=== PATIENT | female | born 1965 | race Caucasian/White ===

== ENCOUNTER → 2016-09-09 | Outpatient (CLI) | payer OTHER ==
[2015-02-23 09:30] VITALS: BP 162/76
[~2016-09-09] MED LIST: ACET-58 PO; ESTROVEN ENER400 MCG PO; IBUP200C PO; MULT-18 PO
--- NOTE | 2016-09-09 19:54 | CARD ---
APPROVED REPORT EXAM: Two-dimensional and M-mode echocardiogram with Doppler and color Doppler. Other Information Quality : GoodHR: 80bpm Rhythm : NSR INDICATION Edema 2D DIMENSIONS RVDd1.9 (2.9-3.5cm)Left Atrium(2D)3.7 (1.6-4.0cm) IVSd1.0 (0.7-1.1cm)Aortic Root(2D)2.9 (2.0-3.7cm) LVDd5.3 (3.9-5.9cm)LVOT Diameter2.4 (1.8-2.4cm) PWd1.0 (0.7-1.1cm)LVDs3.2 (2.5-4.0cm) FS (%) 38.7 %SV92.6 ml LVEF(%)68.6 (>50%) Aortic Valve AoV Peak Madi.130.6cm/sAoV VTI29.1cm AO Peak GR.6.8mmHgLVOT Peak Madi.107.2cm/s AO Mean GR.4mmHgAVA (VMAX)3.59cm2 Mitral Valve MV E Edicyedz04.1cm/sMV E Peak Gr.3mmHg MV DECEL [id number] A Evmhojej70.0cm/s MV E Mean Gr.2mmHgE/A Ratio0.8 MV A [id number] Pulmonary Valve PV Peak Yabifeku88.7cm/s Pulmonary Vein S1 Ejerrolk43.9cm/sD2 Qhluunmw46.3cm/s PVa [id number] LEFT VENTRICLE The left ventricle is normal size. There is normal left ventricular wall thickness. The left ventricu lar systolic function is normal and the ejection fraction is within normal range. The Ejection Fracti on is 65-70%. There is normal LV segmental wall motion. Transmitral Doppler flow pattern is Grade I-a bnormal relaxation pattern. RIGHT VENTRICLE The right ventricle is normal size. There is normal right ventricular wall thickness. The right ventr icular systolic function is normal. ATRIA The left atrium is mildly dilated. The right atrium size is normal. The interatrial septum is intact with no evidence for an atrial septal defect or patent foramen ovale as noted on 2-D or Doppler imagi ng. AORTIC VALVE The aortic valve is mildly thickened. The aortic valve is trileaflet. Doppler and Color Flow revealed no significant aortic regurgitation. There is no significant aortic valvular stenosis. MITRAL VALVE The mitral valve leaflets are thickened. There is no evidence of mitral valve prolapse. There is no m itral valve stenosis. Doppler and Color Flow revealed mild mitral regurgitation. PULMONIC VALVE Doppler and Color Flow revealed mild pulmonic valvular regurgitation. There is no pulmonic valvular s tenosis. GREAT VESSELS The aortic root is normal in size. The ascending aorta is normal in size. The pulmonary artery is nor mal. The IVC is normal in size and collapses >50% with inspiration. PERICARDIAL EFFUSION There is no evidence of significant pericardial effusion. Critical Notification Critical Value: No <Conclusion> The left ventricle is normal size. There is normal left ventricular wall thickness. The left ventricular systolic function is normal and the ejection fraction is within normal range. The Ejection Fraction is 65-70%. Transmitral Doppler flow pattern is Grade I-abnormal relaxation pattern. There is no evidence of significant pericardial effusion. There is no mitral stenosis and a mild mitral regurgitation. The left atrium is of a normal size. There is no aortic stenosis or regurgitation. The right ventricle is of a normal [place] with normal stystolic function. There is no significant tricuspid regurgitation to be able to evaluate the pulmonary artery systolic pressure The inferior vena cava is of a normal size with normal inspiratory collapse. Thus any lower extrmity oedema is not cardiac in etiology Doppler and Color Flow revealed mild pulmonic valvular regurgitation.
== END | disposition home or self-care (01) ==
LOC: ECHO 12:44
PROVIDERS: ATTEND Family Medicine
DX: R60.0 Localized edema (principal); I37.1 Nonrheumatic pulmonary valve insufficiency; I34.0 Nonrheumatic mitral (valve) insufficiency
CPT/HCPCS: 93306

== ENCOUNTER 2018-11-27 20:02 | Emergency (ER) | payer BC, OTHER ==
[~2018-11-27] VITALS: Ht 162.6 cm; Wt 139.7 kg
[2018-11-27 20:05] VITALS: BP 161/85
[2018-11-27] MEDS ORDERED: NEOMY/BACITR/POLYMYXIN OINT PACKET. TP ONE (20:45)
[2018-11-27] MEDS ORDERED: IBUPROFEN 200 MG TABLET. PO ONE (21:00)
--- NOTE | 2018-11-27 21:57 | PHYS DOC ---
Past Medical History Past Medical History: Diabetes-Type II, Hypertension, Other Additional Past Medical Histor: OBESITY,SPINAL STENOSIS Past Surgical History: Tubal ligation, Other Additional Past Surgical Histo: hernia repair, Additional Information: 1 PPD Alcohol Use: Occasionally Drug Use: None Adult General Chief Complaint Chief Complaint: MECHANICAL FALL HPI HPI Patient is a 53 year old female who presents with a right arm contusion, bruising and a skin tear after slipping on her porch and falling on her right side at approximately 7:30 PM. Patient states the pain is constant and 5/10 in severity in her right forearm. In addition, the patient endorses mild right calf and hip pain. However, she denies any bruising or swelling in her lower extremities. Patient denies any head trauma or loss of consciousness during her fall. The patient has not taken anything for the pain yet. She has no other complaints at this time. Review of Systems Review of Systems Constitutional: Denies fever or chills [] Eyes: Denies change in visual acuity, redness, or eye pain [] HENT: Denies nasal congestion or sore throat [] Respiratory: Denies cough or shortness of breath [] Cardiovascular: Denies any chest pain or palpitations. GI: Denies abdominal pain, nausea, vomiting, bloody stools or diarrhea [] : Denies dysuria or hematuria [] Musculoskeletal: Right forearm pain, bruising. Integument: Denies rash or skin lesions [] Neurologic: Denies headache, focal weakness or sensory changes [] Complete systems were reviewed and found to be within normal limits, except as documented in this note. Current Medications Current Medications Current Medications Medications (Trade) Dose Ordered Sig/Dony Start Time Stop Time Status Last Admin Dose Admin Ibuprofen (Motrin) 600 mg 1X ONCE 11/27/18 21:00 11/27/18 21:01 DC 11/27/18 20:59 600 MG Neomycin/ Polymyxin/ Bacitracin (Triple Antibiotic Ointment) 1 pkt 1X ONCE 11/27/18 20:45 11/27/18 20:46 DC 11/27/18 20:59 1 PKT Allergies Allergies Allergies Coded Allergies Type Severity Reaction Last Updated Verified Latex, Natural Rubber Allergy Intermediate Rash 05/29/15 Yes Physical Exam Physical Exam Constitutional: Well developed, well nourished, no acute distress, non-toxic appearance. [] Eyes: conjunctiva normal, no discharge. [] Cardiovascular:Heart rate regular rhythm, no murmur [] Lungs & Thorax: Bilateral breath sounds clear to auscultation [] Skin: Warm, dry, no erythema, no rash. [] Extremities: Bruising, Swelling, skin tear on right forearm. Neurologic: Alert and oriented X 3, normal motor function, normal sensory function, no focal deficits noted. [] Psychologic: Affect normal, judgement normal, mood normal. [] Current Patient Data Vital Signs Vital Signs Date Time Temp Pulse Resp B/P (MAP) Pulse Ox O2 Delivery O2 Flow Rate FiO2 11/27/18 20:05 97.9 102 20 161/85 (110) 96 Room Air 97.9 EKG EKG [] Radiology/Procedures Radiology/Procedures 2 view x rays of both the right forearm and right, lower leg (preliminary reading by ED physician showed no fractures or effusions).[] Course & Med Decision Making Course & Med Decision Making Ms. Jimenez is a 53-year-old female who presents after slipping and falling on her porch earlier this evening and sustaining a right forearm contusion and skin tear. Imaging was obtained and shown to be reassuring for her right radius and ulna as well as her right tibia and fibula. Patient's skin tear was cleaned and bandaged with application of antibiotic ointment. Ibuprofen was administered for pain and inflammation. Patient was also educated on RICE therapy.Patient stable for discharge with outpatient follow-up with PCP. Discussed findings and plan with patient and family, who acknowledge understanding and agreement. Dragon Disclaimer Dragon Disclaimer This electronic medical record was generated, in whole or in part, using a voice recognition dictation system. Departure Departure Impression: Primary Impression: Fall Additional Impressions: Skin tear Contusion of forearm, right Leg sprain Disposition: HOME, SELF-CARE Condition: STABLE Referrals: MONAE GERONIMO (PCP) Patient Instructions: Contusion, [id number], Fall Prevention and Home Safety, Gieb-fa-Umoa, Skin Tear Care, Ghlc-do-Jazi, Sprain, Rody-sr-Joup Additional Instructions: Use over the counter Tylenol and Ibuprofen for pain. ICE area 20 min on then off 20 min for next few days. Problem Qualifiers Primary Impression: Fall Encounter type: initial encounter Qualified Codes: W19.XXXA - Unspecified fall, initial encounter Additional Impressions: Contusion of forearm, right Encounter type: initial encounter Qualified Codes: S50.11XA - Contusion of right forearm, initial encounter CLEO DENNY DO November 27, 2018 21:57
--- NOTE | 2018-11-28 05:40 | RAD ---
Right tibia and fibula AP and lateral views. HISTORY: Pain after a fall AP and lateral views were taken of the right tibia and fibula. There is extensive soft tissue swelling. There is no fracture or acute osseous abnormality. IMPRESSION: 1. Soft tissue swelling right tibia and fibula. 2. No acute fracture. Electronically signed by: Wyatt Leonardo MD (11/28/2018 5:38 AM) [facility]
--- NOTE | 2018-11-28 05:40 | RAD ---
Right forearm 2 views. HISTORY: Pain after a fall 2 views were taken of the right forearm. There is not evidence of an acute fracture or osseous abnormality. IMPRESSION: 1. No fracture or acute osseous abnormality in the right forearm. Electronically signed by: Wyatt Leonardo MD (11/28/2018 5:37 AM) [facility]
== END 2018-11-27 22:08 | disposition home or self-care (01) ==
LOC: ER 20:02
DX: S51.811A Laceration without foreign body of right forearm, initial encounter (principal); S93.691A Other sprain of right foot, initial encounter; M25.551 Pain in right hip; I10 Essential (primary) hypertension; E11.9 Type 2 diabetes mellitus without complications; F17.200 Nicotine dependence, unspecified, uncomplicated; E66.9 Obesity, unspecified; Z68.43 Body mass index [BMI] 50.0-59.9, adult; Z98.51 Tubal ligation status; Z91.040 Latex allergy status; W01.0XXA Fall on same level from slipping, tripping and stumbling without subsequent striking against object, initial encounter; Y93.89 Activity, other specified; Y92.89 Other specified places as the place of occurrence of the external cause; Y99.8 Other external cause status
CPT/HCPCS: 73090; 73590; 99284

== ENCOUNTER 2019-12-30 00:05 | Inpatient (IN) | payer BC, MEDICARE ==
[~2019-12-30] VITALS: Ht 162.6 cm; Wt 147.0 kg
--- NOTE | 2019-12-30 00:54 | PHYS DOC ---
Past Medical History Past Medical History: Diabetes-Type II, Hypertension, Other Additional Past Medical Histor: OBESITY,SPINAL STENOSIS Past Surgical History: Tubal ligation, Other Additional Past Surgical Histo: hernia repair, Smoking Status: Current Every Day Smoker Alcohol Use: Occasionally Drug Use: None General Adult EDM: Chief Complaint: CELLULITIS HPI: HPI: Patient is a 54 year old who presents for evaluation of bilateral lower leg redness and swelling. She has had symptoms progressing over number weeks. There are now small ulcerations developing that are oozing clear fluid. There are blisters present as well. She has been having some increasing shortness of air. However there is no reported fevers and chills. Patient was started on Lasix back in November but her symptoms have only minimally improved. Patient does not have a history of congestive heart failure or renal disease. Dr. Patel is her physician Review of Systems: Review of Systems: Constitutional: Denies fever or chills. [] Eyes: Denies change in visual acuity. [] HENT: Denies nasal congestion or sore throat. [] Respiratory: Denies cough or shortness of breath. [] Cardiovascular: Denies chest pain or edema. [] GI: Denies abdominal pain, nausea, vomiting, bloody stools or diarrhea. [] : Denies dysuria. [] Musculoskeletal: Denies back pain, bilateral lower leg pitting edema with stasis ulcers. [] Integument: Denies rash. [] Neurologic: Denies headache, focal weakness or sensory changes. [] Endocrine: Denies polyuria or polydipsia. [] Lymphatic: Denies swollen glands. [] Psychiatric: Denies depression or anxiety. [] Heart Score: Risk Factors: Risk Factors: DM, Current or recent (<one month) smoker, HTN, HLP, family history of CAD, obesity. Risk Scores: Score 0 - 3: 2.5% MACE over next 6 weeks - Discharge Home Score 4 - 6: 20.3% MACE over next 6 weeks - Admit for Clinical Observation Score 7 - 10: 72.7% MACE over next 6 weeks - Early Invasive Strategies Current Medications: Current Medications Medications (Trade) Dose Ordered Sig/Dony Start Time Stop Time Status Last Admin Dose Admin Clindamycin Phosphate 50 ml @ 100 mls/hr 1X ONCE 12/30/19 01:00 12/30/19 01:29 Sodium Chloride 1,000 ml @ 75 mls/hr 1X ONCE 12/30/19 01:00 12/30/19 14:19 Allergies: Allergies: Allergies Coded Allergies Type Severity Reaction Last Updated Verified Latex, Natural Rubber Allergy Intermediate Rash 05/29/15 Yes Physical Exam: PE: Constitutional: Well developed, well nourished, mild acute distress, non-toxic appearance. [] HENT: Normocephalic, atraumatic, bilateral external ears normal, oropharynx moist, no oral exudates, nose normal. [] Eyes: PERRL, EOMI, conjunctiva normal, no discharge. [] Neck: Normal range of motion, no tenderness, supple, no stridor. [] Cardiovascular:Heart rate regular rhythm, murmur [] Lungs & Thorax: Bilateral breath sounds clear to auscultation [] Abdomen: Bowel sounds normal, soft, no tenderness, no masses, no pulsatile masses. [] Skin: Warm, dry significant erythema with pitting edema bilateral lower legs, some ulcerations present both lower legs, some blisters as well all draining clear fluid. [] Back: No tenderness. [] Extremities: Diffuse lower leg tenderness bilaterally, no cyanosis, no clubbing, ROM intact, pitting edema. [] Neurologic: Alert and oriented X 3, normal motor function, normal sensory function, no focal deficits noted. [] Psychologic: Affect normal, judgement normal, mood normal. [] Current Patient Data: Labs: Laboratory Tests Test 12/30/19 00:40 White Blood Count 10.4 x10^3/uL Red Blood Count 5.62 x10^6/uL Hemoglobin 15.0 g/dL Hematocrit 45.4 % Mean Corpuscular Volume 81 fL Mean Corpuscular Hemoglobin 27 pg Mean Corpuscular Hemoglobin Concent 33 g/dL Red Cell Distribution Width 16.7 % Platelet Count 274 x10^3/uL Neutrophils (%) (Auto) 70 % Lymphocytes (%) (Auto) 20 % Monocytes (%) (Auto) 8 % Eosinophils (%) (Auto) 2 % Basophils (%) (Auto) 1 % Neutrophils # (Auto) 7.2 x10^3/uL Lymphocytes # (Auto) 2.1 x10^3/uL Monocytes # (Auto) 0.8 x10^3/uL Eosinophils # (Auto) 0.2 x10^3/uL Basophils # (Auto) 0.1 x10^3/uL Sodium Level 142 mmol/L Potassium Level 3.6 mmol/L Chloride Level 104 mmol/L Carbon Dioxide Level 27 mmol/L Anion Gap 11 Blood Urea Nitrogen 20 mg/dL Creatinine 1.2 mg/dL Estimated GFR (Cockcroft-Gault) 46.6 BUN/Creatinine Ratio 17 Glucose Level 171 mg/dL Calcium Level 9.0 mg/dL Total Bilirubin 0.2 mg/dL Aspartate Amino Transf (AST/SGOT) 23 U/L Alanine Aminotransferase (ALT/SGPT) 29 U/L Alkaline Phosphatase 89 U/L Creatine Kinase 215 U/L Troponin I Quantitative < 0.017 ng/mL HZ-Olz-V-Type Natriuretic Peptide 153 pg/mL Total Protein 7.4 g/dL Albumin 2.9 g/dL Albumin/Globulin Ratio 0.6 Current Medications Medications (Trade) Dose Ordered Sig/Dony Route PRN Reason Start Time Stop Time Status Last Admin Dose Admin Sodium Chloride 1,000 ml @ 75 mls/hr 1X ONCE IV 12/30/19 01:00 12/30/19 14:19 12/30/19 01:02 Clindamycin Phosphate 50 ml @ 100 mls/hr 1X ONCE IV 12/30/19 01:00 12/30/19 01:29 DC 12/30/19 01:01 EKG: EKG: EKG read at 12:54 AM shows normal sinus rhythm, rate 81, leftward axis, unremarkable EKG, not STEMI [] Radiology/Procedures: Radiology/Procedures: CXR: CM, no acute findings[] Course & Med Decision Making: Course & Med Decision Making Pertinent Labs and Imaging studies reviewed. (See chart for details) [] Dragon Disclaimer: Dragon Disclaimer: This electronic medical record was generated, in whole or in part, using a voice recognition dictation system. 0300 stable, patient will be admitted and treated for cellulitis. Dose of clindamycin given after blood cultures collected. Patient was started on Lasix as well. Patient will admitted to the hospitalist service. Departure Departure Impression: Primary Impression: Bilateral lower leg cellulitis Additional Impressions: Leg ulcer, left Qualified Codes: L97.921 - Non-pressure chronic ulcer of unspecified part of left lower leg limited to breakdown of skin Peripheral edema Disposition: ADMITTED INPATIENT Admitting Physician: ED Condition: STABLE Referrals: PULS,JAQUELINE L MD (PCP) Justicifation of Admission Dx: Justifications for Admission: Justification of Admission Dx: Yes Cellulitis: Cellulitis HARMAN WOODARD DO Dec 30, 2019 00:54
[2019-12-30] MEDS ORDERED: IV NORMAL SALINE 1000ML BAG 1,000 ML IV ONE (01:00)
[2019-12-30] MEDS ORDERED: CLINDAMYCIN 600MG PREMIX 50 ML IV ONE (01:00)
[2019-12-30 01:03] LABS: BASO # 0.1 x10^3/uL (0.0-0.2); BASO % 1 % (0-3); EOS # 0.2 x10^3/uL (0.0-0.7); EOS % 2 % (0-3); HEMATOCRIT 45.4 % (36.0-47.0); LYMPH # 2.1 x10^3/uL (1.0-4.8); LYMPH % 20 % (24-48); MEAN CORPUSCULAR HEMOGLOBIN 27 pg (25-35); MEAN CORPUSCULAR HGB CONC 33 g/dL (31-37); MEAN CORPUSCULAR VOLUME 81 fL (79-100); MONO # 0.8 x10^3/uL (0.0-1.1); MONO % 8 % (0-9); NEUT # 7.2 x10^3/uL (1.8-7.7); NEUT % 70 % (31-73); PLATELET COUNT 274 x10^3/uL (140-400); RED BLOOD COUNT 5.62 x10^6/uL (3.50-5.40); RED CELL DISTRIBUTION WIDTH 16.7 % (11.5-14.5); WHITE BLOOD COUNT 10.4 x10^3/uL (4.0-11.0)
[2019-12-30 01:25] LABS: CREATININE 1.2 mg/dL (0.6-1.0); GFR 46.6; POTASSIUM 3.6 mmol/L (3.5-5.1)
[2019-12-30 01:32] LABS: ALBUMIN 2.9 g/dL (3.4-5.0); ALBUMIN/GLOBULIN RATIO 0.6 (1.0-1.7); TOTAL BILIRUBIN 0.2 mg/dL (0.2-1.0); TOTAL PROTEIN 7.4 g/dL (6.4-8.2)
[2019-12-30] MEDS ORDERED: ONDANSETRON PF 4 MG/2 ML VIAL. IV PRN ×2 (03:30→14:00)
[2019-12-30] MEDS ORDERED: FUROSEMIDE 40 MG TABLET. PO ONE (04:00)
[2019-12-30 04:30] VITALS: BP 114/61
[2019-12-30] MEDS ORDERED: FURO-68 PO (05:12)
[2019-12-30] MEDS ORDERED: VALS80TA3 PO (05:12)
[2019-12-30] MEDS ORDERED: POTA20TA4 PO (05:12)
--- NOTE | 2019-12-30 05:20 | RAD ---
EXAM: CHEST ONE VIEW. HISTORY: Shortness of breath. COMPARISON: None. FINDINGS: A frontal view of the chest is obtained. There is a mild airspace opacity in the right base. There is no pneumothorax or pleural effusion. The heart is not enlarged. IMPRESSION: 1. Mild right basilar infiltrate. Correlate for atypical pneumonia. Electronically signed by: Delisa Greco MD (12/30/2019 5:17 AM) [facility]
[2019-12-30 07:00] VITALS: BP 103/50
--- NOTE | 2019-12-30 07:51 | EKG ---
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
--- NOTE | 2019-12-30 10:11 | PDOC1 ---
History and Physical Date of Admission Date of Admission DATE: 12/30/19 TIME: 10:10 Identification/Chief Complaint Chief Complaint SEEN IN ER WITH CELLULITIS BOTH LOWER LEGS 54 year old who presents for evaluation of bilateral lower leg redness and swelling. She has had symptoms progressing over number weeks. There are now small ulcerations developing that are oozing clear fluid. There are blisters present as well. She has been having some increasing shortness of air. However there is no reported fevers and chills. Patient was started on Lasix in November but her symptoms have only minimally improved, Denies trauma to legs Past Medical History Past Medical History Past Medical History Past Medical History Past Medical History: Diabetes-Type II, Hypertension, Other Additional Past Medical Histor: OBESITY,SPINAL STENOSIS Past Surgical History: Tubal ligation, Other Additional Past Surgical Histo: hernia repair, Smoking Status: Current Every Day Smoker Alcohol Use: Occasionally Drug Use: None fhx obesity Endocrine: Diabetes Family History Family History: High Cholestrol, Hypertension Social History Smoke: <1 pack per day ALCOHOL: none Drugs: None Current Problem List Problem List Problems Medical Problems: (1) Bilateral lower leg cellulitis Status: Acute (2) Leg ulcer, left Status: Acute (3) Peripheral edema Status: Acute Current Medications Current Medications Current Medications Sodium Chloride 1,000 ml @ 75 mls/hr 1X ONCE IV Last administered on 12/30/19at 01:02; Start 12/30/19 at 01:00; Stop 12/30/19 at 14:19 Clindamycin Phosphate 50 ml @ 100 mls/hr 1X ONCE IV Last administered on 12/30/19at 01:01; Start 12/30/19 at 01:00; Stop 12/30/19 at 01:29; Status DC Furosemide (Lasix) 40 mg 1X ONCE PO Last administered on 12/30/19at 04:10; Start 12/30/19 at 04:00; Stop 12/30/19 at 04:01; Status DC Ondansetron HCl (Zofran) 4 mg PRN Q8HRS PRN IV NAUSEA/VOMITING 1ST CHOICE; Start 12/30/19 at 03:30; Stop 12/31/19 at 03:29 Active Scripts Active Reported Diovan (Valsartan) 80 Mg Tablet 80 Mg PO DAILY Klor-Con M20 (Potassium Chloride) 20 Meq Tab.er.prt 1 Tab PO DAILY 30 Days Lasix (Furosemide) 40 Mg Tablet 1 Tab PO DAILY 30 Days Daily Vitamin (Multivitamin) 1 Each Tablet 1 Each PO DAILY [employer] Capsule (Mv,Ca,Min/Fa/Herbal No.158) 400 Mcg Capsule 400 Mcg PO DAILY Acetaminophen Extra Strength (Acetaminophen) 500 Mg Tablet 500 Mg PO PRN Ibuprofen 200 Mg Capsule 200 Mg PO PRN Allergies Allergies: Coded Allergies: Latex, Natural Rubber (Verified Allergy, Intermediate, Rash, 05/29/15) ROS Review of System Review of Systems: Review of Systems: Constitutional: Denies fever or chills. [] Eyes: Denies change in visual acuity. [] HENT: Denies nasal congestion or sore throat. [] Respiratory: Denies cough or shortness of breath. [] Cardiovascular: Denies chest pain or edema. [] GI: Denies abdominal pain, nausea, vomiting, bloody stools or diarrhea. [] : Denies dysuria. [] Musculoskeletal: Denies back pain, bilateral lower leg pitting edema with stasis ulcers. [] Integument: bilateral lower leg rash. [] Neurologic: Denies headache, focal weakness or sensory changes. [] Endocrine: Denies polyuria or polydipsia. [] Lymphatic: Denies swollen glands. [] Psychiatric: Denies depression or anxiety. [] 14 pt ros otherwise neg Respiratory: No: Cough, Hemoptysis, Orthopnea, Pleuritic Pain, Shortness of breath, SOB with excertion, Sputum Changes, Stridor, Tachypnea, Wheezing, Other Cardiovascular: yes Edema; No Chest Pain, No Palpitations, No Orthopnea, No Paroxysmal Noc. Dyspnea, No Lt Headedness, No Other Gastrointestinal: No Nausea, No Vomiting, No Abdominal Pain, No Diarrhea, No Constipation, No Melena, No Hematochezia, No Other Musculoskeletal: Yes Gait Disturbance, Yes Joint Stiffness, Yes Joint Swelling Neurological: Yes Gait Disturbance Physical Exam Physical Exam Constitutional: Well developed, well nourished, mild acute distress, non-toxic appearance. [] HENT: Normocephalic, atraumatic, bilateral external ears normal, oropharynx moist, no oral exudates, nose normal. [] Eyes: PERRL, EOMI, conjunctiva normal, no discharge. [] Neck: Normal range of motion, no tenderness, supple, no stridor. [] Cardiovascular:Heart rate regular rhythm, murmur [] Lungs & Thorax: Bilateral breath sounds clear to auscultation [] Abdomen: Bowel sounds normal, soft, no tenderness, no masses, no pulsatile masses. [] Skin: Warm, dry significant erythema with pitting edema bilateral lower legs, some ulcerations present both lower legs, some blisters as well all draining clear fluid. [] Back: No tenderness. [] Extremities: Diffuse lower leg tenderness bilaterally, no cyanosis, no clubbing, ROM intact, pitting edema. [] stasis dermatitis noted Neurologic: Alert and oriented X 3, normal motor function, normal sensory function, no focal deficits noted. [] Psychologic: Affect normal, judgment normal, mood normal. [] General: Alert, Oriented X3, Cooperative, mild distress HEENT: Atraumatic, EOMI, Mucous membr. moist/pink Lungs: Clear to auscultation, Normal air movement Heart: RRR, no thrills Breasts: Not examined Abdomen: Normal bowel sounds, Soft Rectal Exam: not examined PELVIC: Examination not indicated Extremities: No cyanosis Neuro: Normal speech, Cranial nerves 3-12 NL Psych/Mental Status: Mental status NL, Mood NL Vitals Vitals Vital Signs Date Time Temp Pulse Resp B/P (MAP) Pulse Ox O2 Delivery O2 Flow Rate FiO2 12/30/19 04:30 98.3 82 16 114/61 (78) 96 Room Air 98.3 Labs Labs Laboratory Tests Test 12/30/19 00:40 White Blood Count 10.4 x10^3/uL (4.0-11.0) Red Blood Count 5.62 x10^6/uL (3.50-5.40) Hemoglobin 15.0 g/dL (12.0-15.5) Hematocrit 45.4 % (36.0-47.0) Mean Corpuscular Volume 81 fL (79-100) Mean Corpuscular Hemoglobin 27 pg (25-35) Mean Corpuscular Hemoglobin Concent 33 g/dL (31-37) Red Cell Distribution Width 16.7 % (11.5-14.5) Platelet Count 274 x10^3/uL (140-400) Neutrophils (%) (Auto) 70 % (31-73) Lymphocytes (%) (Auto) 20 % (24-48) Monocytes (%) (Auto) 8 % (0-9) Eosinophils (%) (Auto) 2 % (0-3) Basophils (%) (Auto) 1 % (0-3) Neutrophils # (Auto) 7.2 x10^3/uL (1.8-7.7) Lymphocytes # (Auto) 2.1 x10^3/uL (1.0-4.8) Monocytes # (Auto) 0.8 x10^3/uL (0.0-1.1) Eosinophils # (Auto) 0.2 x10^3/uL (0.0-0.7) Basophils # (Auto) 0.1 x10^3/uL (0.0-0.2) Sodium Level 142 mmol/L (136-145) Potassium Level 3.6 mmol/L (3.5-5.1) Chloride Level 104 mmol/L (98-107) Carbon Dioxide Level 27 mmol/L (21-32) Anion Gap 11 (6-14) Blood Urea Nitrogen 20 mg/dL (7-20) Creatinine 1.2 mg/dL (0.6-1.0) Estimated GFR (Cockcroft-Gault) 46.6 BUN/Creatinine Ratio 17 (6-20) Glucose Level 171 mg/dL (70-99) Calcium Level 9.0 mg/dL (8.5-10.1) Total Bilirubin 0.2 mg/dL (0.2-1.0) Aspartate Amino Transf (AST/SGOT) 23 U/L (15-37) Alanine Aminotransferase (ALT/SGPT) 29 U/L (14-59) Alkaline Phosphatase 89 U/L (46-116) Creatine Kinase 215 U/L (26-192) Troponin I Quantitative < 0.017 ng/mL (0.000-0.055) KY-Xzk-M-Type Natriuretic Peptide 153 pg/mL (0-124) Total Protein 7.4 g/dL (6.4-8.2) Albumin 2.9 g/dL (3.4-5.0) Albumin/Globulin Ratio 0.6 (1.0-1.7) Laboratory Tests Test 12/30/19 00:40 White Blood Count 10.4 x10^3/uL (4.0-11.0) Red Blood Count 5.62 x10^6/uL (3.50-5.40) Hemoglobin 15.0 g/dL (12.0-15.5) Hematocrit 45.4 % (36.0-47.0) Mean Corpuscular Volume 81 fL (79-100) Mean Corpuscular Hemoglobin 27 pg (25-35) Mean Corpuscular Hemoglobin Concent 33 g/dL (31-37) Red Cell Distribution Width 16.7 % (11.5-14.5) Platelet Count 274 x10^3/uL (140-400) Neutrophils (%) (Auto) 70 % (31-73) Lymphocytes (%) (Auto) 20 % (24-48) Monocytes (%) (Auto) 8 % (0-9) Eosinophils (%) (Auto) 2 % (0-3) Basophils (%) (Auto) 1 % (0-3) Neutrophils # (Auto) 7.2 x10^3/uL (1.8-7.7) Lymphocytes # (Auto) 2.1 x10^3/uL (1.0-4.8) Monocytes # (Auto) 0.8 x10^3/uL (0.0-1.1) Eosinophils # (Auto) 0.2 x10^3/uL (0.0-0.7) Basophils # (Auto) 0.1 x10^3/uL (0.0-0.2) Sodium Level 142 mmol/L (136-145) Potassium Level 3.6 mmol/L (3.5-5.1) Chloride Level 104 mmol/L (98-107) Carbon Dioxide Level 27 mmol/L (21-32) Anion Gap 11 (6-14) Blood Urea Nitrogen 20 mg/dL (7-20) Creatinine 1.2 mg/dL (0.6-1.0) Estimated GFR (Cockcroft-Gault) 46.6 BUN/Creatinine Ratio 17 (6-20) Glucose Level 171 mg/dL (70-99) Calcium Level 9.0 mg/dL (8.5-10.1) Total Bilirubin 0.2 mg/dL (0.2-1.0) Aspartate Amino Transf (AST/SGOT) 23 U/L (15-37) Alanine Aminotransferase (ALT/SGPT) 29 U/L (14-59) Alkaline Phosphatase 89 U/L (46-116) Creatine Kinase 215 U/L (26-192) Troponin I Quantitative < 0.017 ng/mL (0.000-0.055) OR-Bua-Z-Type Natriuretic Peptide 153 pg/mL (0-124) Total Protein 7.4 g/dL (6.4-8.2) Albumin 2.9 g/dL (3.4-5.0) Albumin/Globulin Ratio 0.6 (1.0-1.7) Images Images EXAM: CHEST ONE VIEW. HISTORY: Shortness of breath. COMPARISON: None. FINDINGS: A frontal view of the chest is obtained. There is a mild airspace opacity in the right base. There is no pneumothorax or pleural effusion. The heart is not enlarged. IMPRESSION: 1. Mild right basilar infiltrate. Correlate for atypical pneumonia. Electronically signed by: Delisa Greco MD (12/30/2019 5:17 AM) [facility] DICTATED and SIGNED BY: JUNAID GRECO MD DATE: 12/30/19 0517 LEFT VENTRICLE The left ventricle is normal size. There is normal left ventricular wall thickness. The left ventricular systolic function is normal and the ejection fraction is within normal range. The Ejection Fraction is 65-70%. There is normal LV segmental wall motion. Transmitral Doppler flow pattern is Grade I- abnormal relaxation pattern. RIGHT VENTRICLE The right ventricle is normal size. There is normal right ventricular wall thickness. The right ventricular systolic function is normal. ATRIA The left atrium is mildly dilated. The right atrium size is normal. The interatrial septum is intact with no evidence for an atrial septal defect or patent foramen ovale as noted on 2-D or Doppler imaging. AORTIC VALVE The aortic valve is mildly thickened. The aortic valve is trileaflet. Doppler and Color Flow revealed no significant aortic regurgitation. There is no significant aortic valvular stenosis. MITRAL VALVE The mitral valve leaflets are thickened. There is no evidence of mitral valve prolapse. There is no mitral valve stenosis. Doppler and Color Flow revealed mild mitral regurgitation. PULMONIC VALVE Doppler and Color Flow revealed mild pulmonic valvular regurgitation. There is no pulmonic valvular stenosis. GREAT VESSELS The aortic root is normal in size. The ascending aorta is normal in size. The pulmonary artery is normal. The IVC is normal in size and collapses >50% with inspiration. PERICARDIAL EFFUSION There is no evidence of significant pericardial effusion. Critical Notification Critical Value: No <Conclusion> The left ventricle is normal size. There is normal left ventricular wall thickness. The left ventricular systolic function is normal and the ejection fraction is within normal range. The Ejection Fraction is 65-70%. Transmitral Doppler flow pattern is Grade I-abnormal relaxation pattern. There is no evidence of significant pericardial effusion. There is no mitral stenosis and a mild mitral regurgitation. The left atrium is of a normal size. There is no aortic stenosis or regurgitation. The right ventricle is of a normal [place] with normal stystolic function. There is no significant tricuspid regurgitation to be able to evaluate the pulmonary artery systolic pressure The inferior vena cava is of a normal size with normal inspiratory collapse. Thus any lower extrmity oedema is not cardiac in etiology Doppler and Color Flow revealed mild pulmonic valvular regurgitation. DICTATED and SIGNED BY: PUNEET TABOR MD DATE: 09/09/161952 CC: VALERY OTT MD; MONAE GERONIMO; PUNEET TABOR MD ~ VTE Prophylaxis Ordered VTE Prophylaxis Devices: Contraindicated VTE Pharmacological Prophylaxi: Yes Assessment/Plan Assessment/Plan impression Bilateral lower ext cellulitis LEFT LOWER LEG ULCER Mild right basilar infiltrate. Correlate for atypical pneumonia. morbid obesity DIABETES HYPERTENSION TOBACCO ABUSE DISORDER plan ADMIT consult ID Zosyn/Zyvox/Diflucan iv LOWER arterial dopplers DVT PROPHYLAXIS HOME MEDS WOUND CARE NURSE CONSULT Smoking cessation education discussed D/W RN Justicifation of Admission Dx: Justifications for Admission: Justification of Admission Dx: Yes Sepsis: Infection Cellulitis: Cellulitis Comments: cellulitis , in a diabetic RODRIGUE CHURCHILL MD Dec 30, 2019 10:11
--- NOTE | 2019-12-30 10:43 | NUR ---
SS following for discharge planning. SS reviewed pt chart and discussed with pt RN. Pt is from home with spouse and is currently on room air. SS will continue to follow for discharge planning.
[2019-12-30 11:00] VITALS: BP 125/58
[2019-12-30] MEDS ORDERED: ACETAMINOPHEN 500 MG TABLET PO PRN (11:00)
[2019-12-30] MEDS: LOSARTAN POTASSIUM 50 MG TABLET. PO SCH (12:04)
[2019-12-30] MEDS: POTASSIUM CHLORIDE 20 MEQ TABLET.ER. PO SCH (12:04)
[2019-12-30] MEDS: MULTIVITAMIN with MINERAL TABLET. PO SCH (12:04)
[2019-12-30] MEDS: FUROSEMIDE 40 MG TABLET. PO SCH (12:05)
--- NOTE | 2019-12-30 13:04 | PDOC ---
Infectious Disease Note Vital Sign Vital Signs Vital Signs Date Time Temp Pulse Resp B/P (MAP) Pulse Ox O2 Delivery O2 Flow Rate FiO2 12/30/19 12:04 78 125/58 12/30/19 11:00 97.6 16 93 Room Air 2.0 97.6 Labs Lab Laboratory Tests Test 12/30/19 00:40 White Blood Count 10.4 x10^3/uL (4.0-11.0) Red Blood Count 5.62 x10^6/uL (3.50-5.40) Hemoglobin 15.0 g/dL (12.0-15.5) Hematocrit 45.4 % (36.0-47.0) Mean Corpuscular Volume 81 fL (79-100) Mean Corpuscular Hemoglobin 27 pg (25-35) Mean Corpuscular Hemoglobin Concent 33 g/dL (31-37) Red Cell Distribution Width 16.7 % (11.5-14.5) Platelet Count 274 x10^3/uL (140-400) Neutrophils (%) (Auto) 70 % (31-73) Lymphocytes (%) (Auto) 20 % (24-48) Monocytes (%) (Auto) 8 % (0-9) Eosinophils (%) (Auto) 2 % (0-3) Basophils (%) (Auto) 1 % (0-3) Neutrophils # (Auto) 7.2 x10^3/uL (1.8-7.7) Lymphocytes # (Auto) 2.1 x10^3/uL (1.0-4.8) Monocytes # (Auto) 0.8 x10^3/uL (0.0-1.1) Eosinophils # (Auto) 0.2 x10^3/uL (0.0-0.7) Basophils # (Auto) 0.1 x10^3/uL (0.0-0.2) Sodium Level 142 mmol/L (136-145) Potassium Level 3.6 mmol/L (3.5-5.1) Chloride Level 104 mmol/L (98-107) Carbon Dioxide Level 27 mmol/L (21-32) Anion Gap 11 (6-14) Blood Urea Nitrogen 20 mg/dL (7-20) Creatinine 1.2 mg/dL (0.6-1.0) Estimated GFR (Cockcroft-Gault) 46.6 BUN/Creatinine Ratio 17 (6-20) Glucose Level 171 mg/dL (70-99) Calcium Level 9.0 mg/dL (8.5-10.1) Total Bilirubin 0.2 mg/dL (0.2-1.0) Aspartate Amino Transf (AST/SGOT) 23 U/L (15-37) Alanine Aminotransferase (ALT/SGPT) 29 U/L (14-59) Alkaline Phosphatase 89 U/L (46-116) Creatine Kinase 215 U/L (26-192) Troponin I Quantitative < 0.017 ng/mL (0.000-0.055) LF-Oxo-O-Type Natriuretic Peptide 153 pg/mL (0-124) Total Protein 7.4 g/dL (6.4-8.2) Albumin 2.9 g/dL (3.4-5.0) Albumin/Globulin Ratio 0.6 (1.0-1.7) Objective Assessment Bilat Lower ext cellulitis ROSELIA Morbid Obesity Tinea ? GABRIEL Plan Plan of Care Zosyn/Zyvox/Diflucan LOWER arterial dopplers F/u labs and cults Thank you # [phone] PHOENIX MERCADO MD Dec 30, 2019 13:04
[2019-12-30] MEDS: FLUCONAZOLE 100 MG TABLET. PO SCH (13:23)
[2019-12-30] MEDS: LINEZOLID 600 MG TABLET PO SCH ×2 (13:23→20:23)
[2019-12-30] MEDS ORDERED: MAG HYDROX/ALUMINUM HYD/SIMETH 30 ML ORAL.SUSP PO PRN (14:00)
[2019-12-30] MEDS ORDERED: guaiFENesin ORAL 200 MG/10 ML LIQUID. PO PRN (14:00)
[2019-12-30] MEDS ORDERED: DOCUSATE SODIUM 100 MG CAPSULE. PO PRN (14:00)
[2019-12-30] MEDS ORDERED: ENOXAPARIN 40 MG/0.4 ML SYRINGE. SQ SCH (14:00)
[2019-12-30] MEDS ORDERED: 0.9 % SODIUM CHLORIDE 10 ML DISP.SYRIN. IV PRN (14:00)
[2019-12-30] MEDS ORDERED: cloNIDine HCL 0.1 MG TABLET PO PRN (14:00)
[2019-12-30 15:00] VITALS: BP 134/63
[2019-12-30] MEDS: IPRATRPIUM/ALBUTEROL 0.5/2.5MG 3 ML NEBU. NEB SCH ×3 (15:03→19:42)
--- NOTE | 2019-12-30 15:48 | NUR ---
Wound Care Wound Type/Assessment: LLE blister, slough, red granulation with reddened shawna-wound. Treatment Recommendations/Plan: Cleansed wound, applied medihoney alginate,foam and Medigrip size G. Education provided: Pt educated on PU prevention and wound care plan of care Offloading surface/device: none Recommended Referrals/Tests: none Discharge Recommendations for dressings: as above listed
--- NOTE | 2019-12-30 16:07 | RAD ---
DUPLEX LOWER EXTREMITY BILAT Indication: Reason: Bilateral Leg Pain; ? PAD / Spl. Instructions: / History: Comparison: None. Procedure: Real-time grayscale, color flow Doppler, and Doppler spectral waveform analysis of the arterial system of the lower extremity is performed. Findings: Right lower extremity: Monophasic waveforms throughout the right lower extremity. Elevated velocity within the right common femoral artery measures 207 cm/s. Elevated velocity within the right superficial femoral artery max approximately 216 cm/s. Borderline elevated velocity within the right anterior tibial artery 159 cm/s. Left lower extremity: Monophasic waveforms throughout the left lower extremity. Elevated velocity within the left common femoral artery measures 193 cm/s. Elevated velocity within the left deep femoral artery measures 169 cm/s. Elevated velocity within the left superficial femoral artery max velocity approximately 256 cm/s. Elevated velocity within the posterior tibial artery measures 164 cm/s. Bilateral peroneal arteries not identified. Bilateral lower extremity subcutaneous edema. IMPRESSION: 1. Monophasic waveforms throughout the bilateral lower extremities, may indicate proximal stenosis. 2. Elevated velocities within the right common femoral and bilateral superficial femoral arteries, may indicate 50-75 percent stenosis. 3. Elevated velocities within the left common femoral, left deep femoral, left posterior tibial and right anterior tibial arteries, may indicate 30-49 percent stenosis. 4. Bilateral peroneal arteries not well seen, may relate to technique, stenosis or occlusion. Electronically signed by: Candelario Carrera DO (12/30/2019 4:04 PM) [facility]
[2019-12-30] MEDS: PIPERACILLIN/TAZOBACTAM 3.375 GM in IV NORMAL SALINE 50ML 50 ML IV SCH ×2 (17:17→23:36)
[2019-12-30 19:10] VITALS: BP 95/55
[2019-12-30 23:26] VITALS: BP 123/73
--- NOTE | 2019-12-31 00:07 | CONS ---
DATE OF CONSULTATION: 12/30/2019 LOCATION: The patient's room is #246. REQUESTING PHYSICIAN: Dr. Becerra. REASON FOR CONSULTATION: Cellulitis. HISTORY OF PRESENT ILLNESS: The patient is a pleasant 54-year-old female with a history of hypertension, morbid obesity and tobacco abuse, who states for the last year or so she has had problems with increased swelling of her lower extremities. She followed up with her primary care doctor and in November she began to take Lasix to try to improve the swelling. She states the swelling improved; however, she developed a sore, particularly in the left base of her lower leg and then developed a little bit more sores on her right lower extremity. The wounds began to sting. They had clear fluid and she did put some ointment on the right lower extremity, but because of the tenderness, then developed some redness and some warmth as well as some swelling. She was admitted to the hospital. She has not been having any fever, chills or sweats. Appetite is okay. Energy is alright. She has been put on a little bit of oxygen because she desats at night and she received a dose of clindamycin. She denies any trauma. She wears slippers around the house. Does have some dogs, but no interaction with the skin. PAST MEDICAL HISTORY: Positive for obesity, hypertension, and spinal stenosis. PAST SURGICAL HISTORY: Positive for tubal ligations and umbilical hernia repair x 2. REVIEW OF SYSTEMS: Otherwise negative. ALLERGIES: No known drug allergies. SOCIAL HISTORY: She is a smoker. Denies any alcohol. Again, has two dogs. She is not working. No outdoor activity and she is . FAMILY HISTORY: Noncontributory. CURRENT MEDICATIONS: She received clindamycin x 1, Lasix, Cozaar, multivitamins, and Zofran. PHYSICAL EXAMINATION: VITAL SIGNS: Afebrile, temperature 97.6, pulse 78, respirations 16, blood pressure 125/58, and satting 93% on 2 liters. CONSTITUTIONAL: She is sitting upright in bed. She is cooperative. She is in no acute distress. Wears glasses. HEENT: Pupils are equal and reactive. She has normal conjunctivae. Oral cavity, pharynx is clear. NECK: Supple with good range of motion. LUNGS: Clear to auscultation bilaterally. HEART: S1, S2 distant. ABDOMEN: Morbidly obese, soft, nontender. No guarding, no rebound. EXTREMITIES: No clubbing or cyanosis. She has 1-2+ bilateral lower extremity edema. There is some wrinkling. She also has some yeast. Her legs are warm to touch. She has decreased pulses. She has a superficial wound on the medial aspect just above her Achilles on the left side. She has some small wound on her right lower extremity. SKIN: Otherwise, warm and without rash. NEUROLOGIC: She is nonfocal and appropriate. PSYCHIATRIC: Affect is appropriate. LABORATORY DATA: Her creatinine was 1.2 today. Glucose 171. She had normal liver function study tests. Creatine kinase was elevated at 215. White count 10.4, hemoglobin 15, platelets 274, neutrophils 70, and lymphs are 20. Chest x-ray: Mild basilar infiltrate. IMPRESSION: 1. Bilateral lower extremity cellulitis. 2. Acute kidney injury. 3. Morbid obesity. 4. Tinea. 5. Obstructive sleep apnea. RECOMMENDATIONS: We will start Zosyn, Zyvox and Diflucan, obtain lower extremity Dopplers and follow up on labs and cultures. Thank you for allowing me to see and participate in this patient's care. Should you have further questions, please do not hesitate to contact me. PHOENIX MERCADO MD DR: ADAN/bethany JOB#: [id number] / [id number]
[2019-12-31 03:50] VITALS: BP 127/80
[2019-12-31] MEDS: PIPERACILLIN/TAZOBACTAM 3.375 GM in IV NORMAL SALINE 50ML 50 ML IV SCH ×3 (04:59→17:58)
[2019-12-31 05:32] LABS: ALBUMIN 2.6 g/dL (3.4-5.0); CALCIUM 8.1 mg/dL (8.5-10.1); CREATININE 1.1 mg/dL (0.6-1.0); GFR 51.6; PHOSPHORUS 3.4 mg/dL (2.6-4.7); POTASSIUM 3.9 mmol/L (3.5-5.1)
[2019-12-31] MEDS: IPRATRPIUM/ALBUTEROL 0.5/2.5MG 3 ML NEBU. NEB SCH ×4 (07:11→21:53)
[2019-12-31 08:11] VITALS: BP 141/56
[2019-12-31] MEDS: FUROSEMIDE 40 MG TABLET. PO SCH (08:31)
[2019-12-31] MEDS: LINEZOLID 600 MG TABLET PO SCH ×2 (08:31→21:34)
[2019-12-31] MEDS: FLUCONAZOLE 100 MG TABLET. PO SCH (08:31)
[2019-12-31] MEDS: MULTIVITAMIN with MINERAL TABLET. PO SCH (08:31)
[2019-12-31] MEDS: POTASSIUM CHLORIDE 20 MEQ TABLET.ER. PO SCH (08:31)
[2019-12-31] MEDS: LOSARTAN POTASSIUM 50 MG TABLET. PO SCH (08:32)
[2019-12-31] MEDS ORDERED: [UNRECOGNIZED DRUG - REMARK] PO SCH (09:00)
--- NOTE | 2019-12-31 10:32 | PDOC ---
Infectious Disease Note Subjective Subjective Legs still swollen and having stinging type pain lower extremities Denies F/C/aches/N/V/D/SOA ROS ROS as mentioned above Vital Sign Vital Signs Vital Signs Date Time Temp Pulse Resp B/P (MAP) Pulse Ox O2 Delivery O2 Flow Rate FiO2 12/31/19 08:32 73 141/56 12/31/19 08:11 98.0 20 92 Room Air 98.0 12/31/19 03:50 2.0 Physical Exam PHYSICAL EXAM GENERAL: Propped up in bed, alert in NAD LUNGS: Clear to auscultation bilaterally. 1.5L O2 HEART: S1, S2 distant. ABDOMEN: Morbidly obese, soft, nontender. No guarding, no rebound. EXTREMITIES: No clubbing or cyanosis. 2+ bilateral lower extremity edema and yeast. Legs are warm to touch, mild redness. Superficial wound on the medial aspect just above her Achilles on the left side & small wound on her right lower extremity, bandages not taken down SKIN: Otherwise, warm and without rash. NEUROLOGIC: Nonfocal and appropriate. PIV Labs Lab Laboratory Tests Test 12/31/19 04:30 Sodium Level 140 mmol/L (136-145) Potassium Level 3.9 mmol/L (3.5-5.1) Chloride Level 105 mmol/L (98-107) Carbon Dioxide Level 29 mmol/L (21-32) Anion Gap 6 (6-14) Blood Urea Nitrogen 16 mg/dL (7-20) Creatinine 1.1 mg/dL (0.6-1.0) Estimated GFR (Cockcroft-Gault) 51.6 Glucose Level 109 mg/dL (70-99) Calcium Level 8.1 mg/dL (8.5-10.1) Phosphorus Level 3.4 mg/dL (2.6-4.7) Albumin 2.6 g/dL (3.4-5.0) IMPRESSION: 1. Monophasic waveforms throughout the bilateral lower extremities, may indicate proximal stenosis. 2. Elevated velocities within the right common femoral and bilateral superficial femoral arteries, may indicate 50-75 percent stenosis. 3. Elevated velocities within the left common femoral, left deep femoral, left posterior tibial and right anterior tibial arteries, may indicate 30-49 percent stenosis. 4. Bilateral peroneal arteries not well seen, may relate to technique, stenosis or occlusion. Micro Microbiology 12/30/19 Blood Culture - Preliminary, Resulted NO GROWTH AFTER 1 DAY Objective Assessment Bilateral lower extremity cellulitis. Right basilar infiltrate. Acute kidney injury. Morbid obesity. Tinea. Obstructive sleep apnea. Plan Plan of Care Zosyn/Zyvox/Diflucan F/u labs and cults Leg elevation D/w daughter at bedside Attending Co-Sign The patient was seen and interviewed as well as examined at the bedside. The chart was reviewed. The case was discussed. Agree with the plan of care. BURKE CARR APRN Dec 31, 2019 10:32 MIGUEL ÁNGEL JOSE MD Dec 31, 2019 12:09
[2019-12-31 10:39] VITALS: BP 125/43
--- NOTE | 2019-12-31 12:30 | PDOC ---
[facility] PROGRESS NOTE Chief Complaint Chief Complaint Bilateral lower ext cellulitis Left leg ulcer Peripheral vascular disease noted on ultrasound of lower extremities Right pneumonia Overweight Diabetes hypertension and tobacco abuse History of Present Illness History of Present Illness 12/31/2019 Patient seen and examined Reviewed chart Discussed with RN I consulted vascular surgery Vitals/I&O Vitals/I&O: Vital Signs Date Time Temp Pulse Resp B/P (MAP) Pulse Ox O2 Delivery O2 Flow Rate FiO2 12/31/19 11:22 94 Room Air 12/31/19 10:39 98.0 64 20 125/43 (70) 1.5 98.0 I & O 12/30/19 12/30/19 12/31/19 15:00 23:00 07:00 Intake Total 180 ml 1622 ml 225 ml Output Total 1300 ml 1400 ml Balance 180 ml 322 ml -1175 ml Physical Exam Physical Exam: GENERAL: Propped up in bed, alert in NAD LUNGS: Clear to auscultation bilaterally. 1.5L O2 HEART: S1, S2 distant. ABDOMEN: Soft, nontender. No guarding, no rebound. EXTREMITIES: No clubbing or cyanosis. 2+ bilateral lower extremity both legs with clean dry intact compression stocking edema and yeast. Legs are warm to touch, mild redness. Superficial wound on the medial aspect just above her Achilles on the left side & small wound on her right lower extremity, bandages not taken down SKIN: Otherwise, warm and without rash. NEUROLOGIC: Nonfocal and appropriate. PIV General: Alert, Oriented X3, Cooperative, mild distress Abdomen: Normal bowel sounds, Soft Extremities: No cyanosis Labs Labs: Laboratory Tests Test 12/31/19 04:30 Sodium Level 140 mmol/L (136-145) Potassium Level 3.9 mmol/L (3.5-5.1) Chloride Level 105 mmol/L (98-107) Carbon Dioxide Level 29 mmol/L (21-32) Anion Gap 6 (6-14) Blood Urea Nitrogen 16 mg/dL (7-20) Creatinine 1.1 mg/dL (0.6-1.0) Estimated GFR (Cockcroft-Gault) 51.6 Glucose Level 109 mg/dL (70-99) Calcium Level 8.1 mg/dL (8.5-10.1) Phosphorus Level 3.4 mg/dL (2.6-4.7) Albumin 2.6 g/dL (3.4-5.0) Review of Systems Review of Systems: Complains of weakness Assessment and Plan Assessmemt and Plan Problems Medical Problems: (1) Bilateral lower leg cellulitis Status: Acute (2) Leg ulcer, left Status: Acute (3) Peripheral edema Status: Acute Bilateral lower ext cellulitis Left leg ulcer Peripheral vascular disease noted on ultrasound of lower extremities Right pneumonia Overweight Diabetes hypertension and tobacco abuse Plan I consulted vascular surgery regarding the abnormal lower extremity Dopplers Wound care IV antibiotics Trend labs Home meds DVT prophylaxis Full code Appreciate subspecialist input Comment Review of Relevant I have reviewed the following items jyotsna (where applicable) has been applied. Medications: Current Medications Medications (Trade) Dose Ordered Sig/Dony Route PRN Reason Start Time Stop Time Status Last Admin Dose Admin Piperacillin Sod/ Tazobactam Sod 3.375 gm/Sodium Chloride 50 ml @ 100 mls/hr Q6HRS IV 12/30/19 18:00 12/31/19 11:52 Linezolid (Zyvox) 600 mg BID PO 12/30/19 13:00 12/31/19 08:31 Fluconazole (Diflucan) 200 mg DAILY PO 12/30/19 13:00 12/31/19 08:31 Albuterol/ Ipratropium (Duoneb) 3 ml Q4HRS W/A NEB 12/30/19 14:00 12/31/19 11:22 Enoxaparin Sodium (Lovenox 60mg Syringe) 60 mg Q12HR SQ 12/30/19 21:00 12/31/19 08:31 Justicifation of Admission Dx: Justifications for Admission: Justification of Admission Dx: Yes Sepsis: Infection Cellulitis: Cellulitis MIRIMA MENDES III DO Dec 31, 2019 12:30
[2019-12-31 14:36] VITALS: BP 127/45
[2019-12-31] MEDS: ACETAMINOPHEN 325 MG TABLET. PO PRN (18:02)
[2019-12-31 19:00] VITALS: BP 117/55
[2019-12-31] MEDS: LACTOBACILLUS RHAMNOSUS GG 1 CAPSULE. PO SCH (21:34)
[2019-12-31 23:00] VITALS: BP 101/43
[2020-01-01] MEDS: PIPERACILLIN/TAZOBACTAM 3.375 GM in IV NORMAL SALINE 50ML 50 ML IV SCH ×4 (00:10→17:15)
[2020-01-01 03:00] VITALS: BP 118/46
[2020-01-01 07:00] VITALS: BP 107/49
[2020-01-01] MEDS: IPRATRPIUM/ALBUTEROL 0.5/2.5MG 3 ML NEBU. NEB SCH ×5 (07:18→22:00)
[2020-01-01] MEDS: FUROSEMIDE 40 MG TABLET. PO SCH (08:05)
[2020-01-01] MEDS: MULTIVITAMIN with MINERAL TABLET. PO SCH (08:05)
[2020-01-01] MEDS: LACTOBACILLUS RHAMNOSUS GG 1 CAPSULE. PO SCH ×2 (08:05→21:09)
[2020-01-01] MEDS: LOSARTAN POTASSIUM 50 MG TABLET. PO SCH (08:06)
[2020-01-01] MEDS: LINEZOLID 600 MG TABLET PO SCH ×2 (08:06→21:09)
[2020-01-01] MEDS: FLUCONAZOLE 100 MG TABLET. PO SCH (08:06)
[2020-01-01] MEDS: POTASSIUM CHLORIDE 20 MEQ TABLET.ER. PO SCH (08:06)
--- NOTE | 2020-01-01 08:52 | CONS ---
DATE OF CONSULTATION: 01/01/2020 REASON FOR CONSULTATION: I was asked to see this 54-year-old lady for abnormal chest x-ray. HISTORY OF PRESENT ILLNESS: She does have history of [id number]-[id number] smoking, continues to smoke about 1 pack per day. She was admitted for lower extremity edema, pain, redness. She has been treated for cellulitis. She had a chest x-ray done, which did show some lower lobe infiltrate versus atelectasis. She has daily cough with sputum production, is not worse than usual. She does have dyspnea on exertion. Her exercise tolerance is about half a block. She is not very active. She has spinal stenosis. Her shortness of breath is not more than usual. She denies fever or chills. She has nasal congestion. She had a sleep study done in September of this year, which did show sleep apnea, but when she went for her mask fitting. She was not able to tolerate, so she is not on CPAP. She has snoring and excessive daytime sleepiness. She has gained about 100 pounds over the past 2 years. PAST MEDICAL HISTORY: Obstructive sleep apnea-hypopnea syndrome, hypertension, spinal stenosis, status post tubal ligation, umbilical hernia repair. ALLERGIES: 1. LATEX. 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 MEDICATIONS: Currently, she is on lactobacillus, Lovenox 60 mg every 12, Zosyn, DuoNeb, Zyvox, Lasix, potassium, multivitamin, Cozaar, fluconazole. SOCIAL HISTORY: History of [id number] smoking, continues to smoke about 1 pack per day. FAMILY HISTORY: There is no history of lung disease. REVIEW OF SYSTEMS: As mentioned as above, other systems otherwise negative. PHYSICAL EXAMINATION: GENERAL: This is an obese lady. VITAL SIGNS: Her O2 saturation on room air is 92%, respiratory rate 18, heart rate 70, blood pressure 107/49, temperature 98.5. HEENT: Normocephalic, atraumatic. Pupils equal, round, reactive to light. There is shallow oropharynx. Nose is clear. NECK: There is no lymphadenopathy or thyromegaly. CARDIOVASCULAR: Regular rate and rhythm. PMI is nondisplaced. CHEST: Inspection is normal. LUNGS: Few end-expiratory wheezing with forced exhalation. Percussion is within normal limit. ABDOMEN: Soft and obese. Bowel sounds are good. There is no mass. EXTREMITIES: There is edema. There is dressing in place. SKIN: Chronic changes. NEUROLOGIC: Alert and oriented. LYMPHATICS: There is no lymphadenopathy. LABORATORY DATA: I reviewed the following lab data: Chest x-ray shows lower lobe infiltrate versus atelectasis. WBC 10.4, hemoglobin 15, platelet 274. Sodium 140, potassium 3.9, chloride 105, CO2 of 29, glucose 109, BUN 16, creatinine 1.1. Troponin less than 0.01. BNP 153. IMPRESSION: 1. Abnormal chest x-ray. Suspect it is atelectasis. I do not believe she has pneumonia. 2. History of 67-[id number]-[id number] smoking. Suspect chronic obstructive pulmonary disease. 3. Obstructive sleep apnea-hypopnea syndrome, untreated. 4. Acute kidney injury. 5. Lower extremity cellulitis. 6. Morbid obesity. 7. Hypertension. 8. Diabetes mellitus. 9. Tobacco habituation. PLAN AND RECOMMENDATIONS: 1. I had a long discussion with her regarding the smoking cessation. I have advised her to stop smoking forever. 2. Continue bronchodilator. 3. PFTs as an outpatient. 4. I have discussed obstructive sleep apnea-hypopnea syndrome, the importance of treatment, if untreated increased cardiovascular and [employer] morbidity and mortality. I have recommended her to obtain CPAP and use it during sleep. I will add Flonase for nasal congestion. 5. We will do a CT of the chest to have a better look at lower lobe infiltrate versus atelectasis. She also has a history of [id number] smoking. 6. Continue Lovenox for DVT prophylaxis. 7. Continue antibiotic per ID. 8. I have advised her to lose weight and exercise. 9. May consider echocardiogram if not done. She does have lower extremity edema. 10. The findings and recommendations were discussed with the patient and RN. I have answered all of the patient's questions. She understood and agreed to proceed with the plan. Thank you very much for allowing me to participate in care of this very nice lady. FILI SPRINGER M.D. : [place]/bethany JOB#: [id number] / [id number]
[2020-01-01] MEDS: FLUTICASONE 50MCG/NASAL SPRAY 16GM BOTTLE. NS SCH (08:55)
--- NOTE | 2020-01-01 10:47 | RAD ---
CT CHEST WO CONTRAST Indication: Infiltrates, smoker Technique: Noncontrast CT imaging was performed of the chest, multiplanar reconstruction images submitted. One or more of the following individualized dose reduction techniques were utilized for this examination: 1. Automated exposure control 2. Adjustment of the mA and/or kV according to patient size 3. Use of iterative reconstruction technique. Comparison: None other than chest radiograph December 30, 2019 Findings: There is heterogeneous mosaic attenuation of the bilateral lung parenchyma with some areas of groundglass density present, greatest of the upper lobes right greater than left also of the right lower lobe. No lobar consolidation is identified. There is no significant pericardial pleural fluid or pneumothorax. Thoracic aortic caliber is within normal limits. There are some subcentimeter mediastinal nodes, largest right paratracheal node about 0.8 cm not considered significantly enlarged. No discrete suspicious pulmonary nodularity is identified. IMPRESSION: 1. There is mosaic attenuation of the bilateral lung parenchyma with areas of groundglass density bilaterally. Nonspecific findings could be associated with alveolar proteinosis, edema, alveolar hemorrhage, or atypical infection. Results were discussed with patient's nurse Mich at 01/01/2020 10:41 AM, to inform doctor of findings. Electronically signed by: Salomón Darling MD (01/01/2020 10:44 AM) [id number]
--- NOTE | 2020-01-01 10:55 | PDOC ---
Infectious Disease Note Subjective Subjective Legs feel a little less swollen, some pain L/R Denies F/C/aches/N/V/D/SOA is visiting ROS [facility] as mentioned above Vital Sign Vital Signs Vital Signs Date Time Temp Pulse Resp B/P (MAP) Pulse Ox O2 Delivery O2 Flow Rate FiO2 01/01/20 08:06 70 107/49 01/01/20 08:00 Room Air 01/01/20 07:20 90 01/01/20 07:00 98.5 12 98.5 12/31/19 14:36 1.5 Physical Exam PHYSICAL EXAM GENERAL: Propped up in bed, alert in NAD LUNGS: Clear to auscultation bilaterally. 1.5L O2 HEART: S1, S2 distant. ABDOMEN: Soft, nontender. No guarding, no rebound. EXTREMITIES: No clubbing or cyanosis. 2+ bilateral lower extremity both legs with clean dry intact compression stocking edema and yeast. Legs are warm to touch, mild redness. Superficial wound on the medial aspect just above her Achilles on the left side & small wound on her right lower extremity, bandages not taken down SKIN: Otherwise, warm and without rash. NEUROLOGIC: Nonfocal and appropriate. PIV Labs Lab CT chest IMPRESSION: 1. There is mosaic attenuation of the bilateral lung parenchyma with areas of groundglass density bilaterally. Nonspecific findings could be associated with alveolar proteinosis, edema, alveolar hemorrhage, or atypical infection. Micro Microbiology 12/30/19 Blood Culture - Preliminary, Resulted NO GROWTH AFTER 1 DAY Objective Assessment Bilateral lower extremity cellulitis. Right basilar infiltrate. Acute kidney injury. Morbid obesity. Tinea. Obstructive sleep apnea. Plan Plan of Care Zosyn/Zyvox/Diflucan Probitocs CBC in am f/u BC Leg elevation D/w at bedside Attending Co-Sign The patient was seen and interviewed as well as examined at the bedside. The chart was reviewed. The case was discussed. Agree with the plan of care. BURKE CARR APRN Jan 01, 2020 10:55 MIGUEL ÁNGEL JSOE MD Jan 01, 2020 11:27
[2020-01-01 11:00] VITALS: BP 157/92
--- NOTE | 2020-01-01 12:25 | PDOC ---
[facility] [facility] PROGRESS NOTE Chief Complaint Chief Complaint New groundglass opacities noted on CT of the chest this morning (we are to check her for COVID 19) Tobacco abuse Bilateral lower ext cellulitis Left leg ulcer Peripheral vascular disease noted on ultrasound of lower extremities Right pneumonia Overweight Diabetes hypertension and tobacco abuse History of Present Illness History of Present Illness 01-01-2020 Patient seen and examined Discussed with her Edy Discussed with RN Chart reviewed Her CAT scan of the chest is showing some groundglass opacities We are going to check her for COVID-19 (she really does not show any clinical symptoms but will check it to be safe) 12/31/2019 Patient seen and examined Reviewed chart Discussed with RN I consulted vascular surgery Vitals/I&O Vitals/I&O: Vital Signs Date Time Temp Pulse Resp B/P (MAP) Pulse Ox O2 Delivery O2 Flow Rate FiO2 01/01/20 11:16 94 Room Air 01/01/20 11:00 98.2 80 16 157/92 (113) 98.2 12/31/19 14:36 1.5 I & O 12/31/19 12/31/19 01/01/20 15:00 23:00 07:00 Intake Total 260 ml 500 ml 400 ml Output Total 300 ml Balance 260 ml 500 ml 100 ml Physical Exam Physical Exam: GENERAL: Propped up in bed, alert in NAD LUNGS: Clear to auscultation bilaterally. 1.5L O2 HEART: S1, S2 distant. ABDOMEN: Soft, nontender. No guarding, no rebound. EXTREMITIES: No clubbing or cyanosis. 2+ bilateral lower extremity both legs with clean dry intact compression stocking edema and yeast. Legs are warm to touch, mild redness. Superficial wound on the medial aspect just above her Achilles on the left side & small wound on her right lower extremity, bandages not taken down SKIN: Otherwise, warm and without rash. NEUROLOGIC: Nonfocal and appropriate. PIV General: Alert, Oriented X3, Cooperative, mild distress Abdomen: Normal bowel sounds, Soft Extremities: No cyanosis Assessment and Plan Assessmemt and Plan Problems Medical Problems: (1) Bilateral lower leg cellulitis Status: Acute (2) Leg ulcer, left Status: Acute (3) Peripheral edema Status: Acut New groundglass opacities noted on CT of the chest this morning Bilateral lower ext cellulitis Left leg ulcer Peripheral vascular disease noted on ultrasound of lower extremities Right pneumonia Overweight Diabetes hypertension and tobacco abuse Plan We will check her for COVID-19 Pulmonary infectious disease and vascular surgery following Wound care IV antibiotics Trend labs Home meds DVT prophylaxis Full code Appreciate subspecialist input Comment Review of Relevant I have reviewed the following items jyotsna (where applicable) has been applied. Medications: Current Medications Medications (Trade) Dose Ordered Sig/Dony Route PRN Reason Start Time Stop Time Status Last Admin Dose Admin Lactobacillus Rhamnosus (Culturelle) 1 cap BID PO 12/31/19 21:00 01/01/20 08:05 Fluticasone Propionate (Flonase) 2 spray DAILY NS 01/01/20 09:00 01/01/20 08:55 Justicifation of Admission Dx: Justifications for Admission: Justification of Admission Dx: Yes Sepsis: Infection Cellulitis: Cellulitis MIRIAM MENDES III DO Jan 01, 2020 12:25
[2020-01-01 15:00] VITALS: BP 116/44
[2020-01-01 19:00] VITALS: BP 129/56
[2020-01-01 23:00] VITALS: BP 132/58
[2020-01-02] MEDS: PIPERACILLIN/TAZOBACTAM 3.375 GM in IV NORMAL SALINE 50ML 50 ML IV SCH ×2 (00:47→06:06)
[2020-01-02 03:00] VITALS: BP 124/54
[2020-01-02 05:19] LABS: BASO % 1 % (0-3); EOS # 0.1 x10^3/uL (0.0-0.7); EOS % 2 % (0-3); HEMATOCRIT 42.7 % (36.0-47.0); HEMOGLOBIN 13.7 g/dL (12.0-15.5); LYMPH # 2.3 x10^3/uL (1.0-4.8); LYMPH % 29 % (24-48); MEAN CORPUSCULAR HEMOGLOBIN 26 pg (25-35); MEAN CORPUSCULAR HGB CONC 32 g/dL (31-37); MEAN CORPUSCULAR VOLUME 82 fL (79-100); MONO # 0.7 x10^3/uL (0.0-1.1); MONO % 9 % (0-9); NEUT # 4.8 x10^3/uL (1.8-7.7); NEUT % 60 % (31-73); PLATELET COUNT 251 x10^3/uL (140-400); RED BLOOD COUNT 5.21 x10^6/uL (3.50-5.40); RED CELL DISTRIBUTION WIDTH 16.4 % (11.5-14.5)
[2020-01-02 06:45] VITALS: BP 139/98
[2020-01-02] MEDS: IPRATRPIUM/ALBUTEROL 0.5/2.5MG 3 ML NEBU. NEB SCH ×5 (07:03→22:00)
[2020-01-02] MEDS: LOSARTAN POTASSIUM 50 MG TABLET. PO SCH (07:29)
[2020-01-02] MEDS: FLUCONAZOLE 100 MG TABLET. PO SCH (07:29)
[2020-01-02] MEDS: LACTOBACILLUS RHAMNOSUS GG 1 CAPSULE. PO SCH ×2 (07:29→20:27)
[2020-01-02] MEDS: MULTIVITAMIN with MINERAL TABLET. PO SCH (07:30)
[2020-01-02] MEDS: LINEZOLID 600 MG TABLET PO SCH (07:30)
[2020-01-02] MEDS: POTASSIUM CHLORIDE 20 MEQ TABLET.ER. PO SCH (07:30)
[2020-01-02] MEDS: FUROSEMIDE 40 MG TABLET. PO SCH (07:30)
[2020-01-02] MEDS: FLUTICASONE 50MCG/NASAL SPRAY 16GM BOTTLE. NS SCH (07:31)
--- NOTE | 2020-01-02 08:31 | PDOC ---
PROGRESS NOTES Chief Complaint Chief Complaint A/P: New groundglass opacities noted on CT of the chest this morning (we are to check her for COVID 19) Tobacco abuse - History of [id number]-[id number] smoking. Suspect chronic obstructive pulmonary disease. Bilateral lower ext cellulitis Left leg ulcer Peripheral vascular disease noted on ultrasound of lower extremities Right pneumonia Overweight Diabetes hypertension and tobacco abuse ROSELIA - likely vasomotor nephropathy Tinea History of Present Illness History of Present Illness Ms Jimenez is a 54-year-old female with a history of hypertension, morbid obesity and tobacco abuse, who states for the last year or so she has had problems with increased swelling of her lower extremities. She followed up with her primary care doctor and in November she began to take Lasix to try to improve the swelling. She states the swelling improved; however, she developed a sore, particularly in the left base of her lower leg and then developed a little bit more sores on her right lower extremity. Admitted for bilateral LE cellulitis and some hypoxia initially. Hypoxia improved with diuresis. Cellulitis improved with antibiotics. Consult: Pulm and ID 12/30: Monophasic flow bilateral LE on arterial dopplers 12/31: Her CAT scan of the chest is showing some groundglass opacities, COVID-19 pending Feeling improved. Off O2. bedside to discuss need to await results for COVID-19. No shortness of breath. Still with some left calf pain. Reviewed arterial ultrasound patient she would like to go home today on oral antibiotics after discussion with ID. Vitals Vitals Vital Signs Date Time Temp Pulse Resp B/P (MAP) Pulse Ox O2 Delivery O2 Flow Rate FiO2 01/02/20 07:49 Room Air 01/02/20 07:29 72 139/98 01/02/20 07:04 98 01/02/20 06:45 98.5 20 98.5 Physical Exam Physical Exam GENERAL: Propped up in bed, alert in NAD LUNGS: Clear to auscultation bilaterally. 1.5L O2 HEART: S1, S2 distant. ABDOMEN: Soft, nontender. No guarding, no rebound. EXTREMITIES: No clubbing or cyanosis. 2+ bilateral lower extremity both legs with clean dry intact compression stocking edema and yeast. Legs are warm to touch, mild redness. Superficial wound on the medial aspect just above her Achilles on the left side & small wound on her right lower extremity, bandages not taken down SKIN: Otherwise, warm and without rash. NEUROLOGIC: Nonfocal and appropriate. PIV General: Alert, Oriented X3, Cooperative, mild distress Abdomen: Normal bowel sounds, Soft Extremities: No cyanosis Labs LABS Laboratory Tests Test 01/02/20 04:15 White Blood Count 8.0 x10^3/uL (4.0-11.0) Red Blood Count 5.21 x10^6/uL (3.50-5.40) Hemoglobin 13.7 g/dL (12.0-15.5) Hematocrit 42.7 % (36.0-47.0) Mean Corpuscular Volume 82 fL (79-100) Mean Corpuscular Hemoglobin 26 pg (25-35) Mean Corpuscular Hemoglobin Concent 32 g/dL (31-37) Red Cell Distribution Width 16.4 % (11.5-14.5) Platelet Count 251 x10^3/uL (140-400) Neutrophils (%) (Auto) 60 % (31-73) Lymphocytes (%) (Auto) 29 % (24-48) Monocytes (%) (Auto) 9 % (0-9) Eosinophils (%) (Auto) 2 % (0-3) Basophils (%) (Auto) 1 % (0-3) Neutrophils # (Auto) 4.8 x10^3/uL (1.8-7.7) Lymphocytes # (Auto) 2.3 x10^3/uL (1.0-4.8) Monocytes # (Auto) 0.7 x10^3/uL (0.0-1.1) Eosinophils # (Auto) 0.1 x10^3/uL (0.0-0.7) Basophils # (Auto) 0.0 x10^3/uL (0.0-0.2) Assessment and Plan Assessmemt and Plan Problems Medical Problems: (1) Bilateral lower leg cellulitis Status: Acute (2) Leg ulcer, left Status: Acute (3) Peripheral edema Status: Acute Comment Review of Relevant I have reviewed the following items jyotsna (where applicable) has been applied. Labs Laboratory Tests Test 01/02/20 04:15 White Blood Count 8.0 x10^3/uL (4.0-11.0) Red Blood Count 5.21 x10^6/uL (3.50-5.40) Hemoglobin 13.7 g/dL (12.0-15.5) Hematocrit 42.7 % (36.0-47.0) Mean Corpuscular Volume 82 fL (79-100) Mean Corpuscular Hemoglobin 26 pg (25-35) Mean Corpuscular Hemoglobin Concent 32 g/dL (31-37) Red Cell Distribution Width 16.4 % (11.5-14.5) Platelet Count 251 x10^3/uL (140-400) Neutrophils (%) (Auto) 60 % (31-73) Lymphocytes (%) (Auto) 29 % (24-48) Monocytes (%) (Auto) 9 % (0-9) Eosinophils (%) (Auto) 2 % (0-3) Basophils (%) (Auto) 1 % (0-3) Neutrophils # (Auto) 4.8 x10^3/uL (1.8-7.7) Lymphocytes # (Auto) 2.3 x10^3/uL (1.0-4.8) Monocytes # (Auto) 0.7 x10^3/uL (0.0-1.1) Eosinophils # (Auto) 0.1 x10^3/uL (0.0-0.7) Basophils # (Auto) 0.0 x10^3/uL (0.0-0.2) Laboratory Tests Test 01/02/20 04:15 White Blood Count 8.0 x10^3/uL (4.0-11.0) Red Blood Count 5.21 x10^6/uL (3.50-5.40) Hemoglobin 13.7 g/dL (12.0-15.5) Hematocrit 42.7 % (36.0-47.0) Mean Corpuscular Volume 82 fL (79-100) Mean Corpuscular Hemoglobin 26 pg (25-35) Mean Corpuscular Hemoglobin Concent 32 g/dL (31-37) Red Cell Distribution Width 16.4 % (11.5-14.5) Platelet Count 251 x10^3/uL (140-400) Neutrophils (%) (Auto) 60 % (31-73) Lymphocytes (%) (Auto) 29 % (24-48) Monocytes (%) (Auto) 9 % (0-9) Eosinophils (%) (Auto) 2 % (0-3) Basophils (%) (Auto) 1 % (0-3) Neutrophils # (Auto) 4.8 x10^3/uL (1.8-7.7) Lymphocytes # (Auto) 2.3 x10^3/uL (1.0-4.8) Monocytes # (Auto) 0.7 x10^3/uL (0.0-1.1) Eosinophils # (Auto) 0.1 x10^3/uL (0.0-0.7) Basophils # (Auto) 0.0 x10^3/uL (0.0-0.2) Microbiology 12/30/19 Blood Culture - Preliminary, Resulted NO GROWTH AFTER 2 DAYS Medications Current Medications Sodium Chloride 1,000 ml @ 75 mls/hr 1X ONCE IV Last administered on 12/30/19at 01:02; Start 12/30/19 at 01:00; Stop 12/30/19 at 14:19; Status DC Clindamycin Phosphate 50 ml @ 100 mls/hr 1X ONCE IV Last administered on 12/30/19at 01:01; Start 12/30/19 at 01:00; Stop 12/30/19 at 01:29; Status DC Furosemide (Lasix) 40 mg 1X ONCE PO Last administered on 12/30/19at 04:10; Start 12/30/19 at 04:00; Stop 12/30/19 at 04:01; Status DC Ondansetron HCl (Zofran) 4 mg PRN Q8HRS PRN IV NAUSEA/VOMITING 1ST CHOICE; Start 12/30/19 at 03:30; Stop 12/31/19 at 03:29; Status DC Acetaminophen (Tylenol) 500 mg PRN Q6HRS PRN PO PAIN Last administered on 12/30/19at 12:04; Start 12/30/19 at 11:00; Stop 12/31/19 at 16:12; Status DC Furosemide (Lasix) 40 mg DAILY PO Last administered on 01/02/20at 07:30; Start 12/30/19 at 11:00 Potassium Chloride (Klor-Con) 20 meq DAILY PO Last administered on 01/02/20at 07:30; Start 12/30/19 at 11:00 Multivitamins (Thera M Plus) 1 tab DAILY PO Last administered on 01/02/20at 07:30; Start 12/30/19 at 11:00 Non-Formulary Medication (Mv,Ca,Min/Fa/ Herbal No.158 ([employer] Capsule)) 400 mcg DAILY PO ; Start 12/31/19 at 09:00; Status UNV Losartan Potassium (Cozaar) 50 mg DAILY PO Last administered on 01/02/20 07:29; Start 12/30/19 at 11:00 Piperacillin Sod/ Tazobactam Sod 3.375 gm/Sodium Chloride 50 ml @ 100 mls/hr Q6HRS IV Last administered on 01/02/20at 06:06; Start 12/30/19 at 18:00 Linezolid (Zyvox) 600 mg BID PO Last administered on 01/02/20 07:30; Start 12/30/19 at 13:00 Fluconazole (Diflucan) 200 mg DAILY PO Last administered on 01/02/20at 07:29; Start 12/30/19 at 13:00 Sodium Chloride (Normal Saline Flush) 3 ml QSHIFT PRN IV AFTER MEDS AND BLOOD DRAWS; Start 12/30/19 at 14:00 Ondansetron HCl (Zofran) 4 mg PRN Q4HRS PRN IV NAUSEA/VOMITING; Start 12/30/19 at 14:00 Acetaminophen (Tylenol) 650 mg PRN Q4HRS PRN PO TEMP OVER 100.4F OR MILD PAIN Last administered on 12/31/19at 18:02; Start 12/30/19 at 14:00 Al Hydroxide/Mg Hydroxide (Mylanta Plus Xs) 30 ml PRN DAILY PRN PO HEARTBURN / GAS; Start 12/30/19 at 14:00 Clonidine HCl (Catapres) 0.1 mg PRN Q6HRS PRN PO SBP>160 OR DBP>90; Start 12/30/19 at 14:00 Docusate Sodium (Colace) 100 mg PRN BID PRN PO HARD STOOLS; Start 12/30/19 at 14:00 Albuterol/ Ipratropium (Duoneb) 3 ml Q4HRS W/A NEB Last administered on 01/02/20at 07:03; Start 12/30/19 at 14:00 Guaifenesin (Robitussin) 200 mg PRN Q4HRS PRN PO COUGH; Start 12/30/19 at 14:00 Enoxaparin Sodium (Lovenox 40mg Syringe) 40 mg Q24H SQ ; Start 12/30/19 at 14:00; Status UNV Enoxaparin Sodium (Lovenox 60mg Syringe) 60 mg Q12HR SQ Last administered on 01/02/20at 07:35; Start 12/30/19 at 21:00 Lactobacillus Rhamnosus (Culturelle) 1 cap BID PO Last administered on 01/01at 07:29; Start 12/31/19 at 21:00 Fluticasone Propionate (Flonase) 2 spray DAILY NS Last administered on 01/02/20at 07:31; Start 01/01/20 at 09:00 Active Scripts Active Reported Diovan (Valsartan) 80 Mg Tablet 80 Mg PO DAILY Klor-Con M20 (Potassium Chloride) 20 Meq Tab.er.prt 1 Tab PO DAILY 30 Days Lasix (Furosemide) 40 Mg Tablet 1 Tab PO DAILY 30 Days Daily Vitamin (Multivitamin) 1 Each Tablet 1 Each PO DAILY [employer] Capsule (Mv,Ca,Min/Fa/Herbal No.158) 400 Mcg Capsule 400 Mcg PO DAILY Acetaminophen Extra Strength (Acetaminophen) 500 Mg Tablet 500 Mg PO PRN Ibuprofen 200 Mg Capsule 200 Mg PO PRN Vitals/I & O Vital Sign - Last 24 Hours 01/01/20 01/01/20 01/01/20 01/01/20 11:00 11:16 15:00 15:47 Temp 98.2 98.1 98.2 98.1 Pulse 80 85 Resp 16 16 B/P (MAP) 157/92 (113) 116/44 (68) Pulse Ox 95 94 92 O2 Delivery Room Air Room Air Room Air Room Air 01/01/20 01/01/20 01/01/20 01/01/20 19:00 19:35 20:09 23:00 Temp 98.6 98.2 98.6 98.2 Pulse 84 85 Resp 18 18 B/P (MAP) 129/56 (80) 132/58 (82) Pulse Ox 92 96 95 O2 Delivery Room Air Room Air Room Air Room Air 01/02/20 01/02/20 01/02/20 01/02/20 03:00 06:45 07:04 07:29 Temp 98.1 98.5 98.1 98.5 Pulse 75 72 72 Resp 18 20 B/P (MAP) 124/54 (77) 139/98 (112) 139/98 Pulse Ox 95 93 98 O2 Delivery Room Air Room Air Room Air 01/02/20 07:49 O2 Delivery Room Air Intake and Output 01/01/20 01/01/20 01/02/20 15:00 23:00 07:00 Intake Total 720 ml 240 ml Balance 720 ml 240 ml RONIT BATES MD Jan 02, 2020 08:31
--- NOTE | 2020-01-02 08:41 | NUR ---
SW following. Discussed with RN, pt from home with , room air. PT/OT recommending home. COVID-19 pending, IV abx. SW will continue to follow.
--- NOTE | 2020-01-02 09:02 | PDOC ---
Infectious Disease Note Subjective Subjective Legs feel a little less swollen, some pain L/R Denies F/C/aches/N/V/D/SOA is visiting ROS ROS no n/v/d/ Vital Sign Vital Signs Vital Signs Date Time Temp Pulse Resp B/P (MAP) Pulse Ox O2 Delivery O2 Flow Rate FiO2 01/02/20 07:49 Room Air 01/02/20 07:29 72 139/98 01/02/20 07:04 98 01/02/20 06:45 98.5 20 98.5 Physical Exam PHYSICAL EXAM GENERAL: Propped up in bed, alert in NAD LUNGS: Clear to auscultation bilaterally. 1.5L O2 HEART: S1, S2 distant. ABDOMEN: Soft, nontender. No guarding, no rebound. EXTREMITIES: No clubbing or cyanosis. 2+ bilateral lower extremity both legs with clean dry intact compression stocking edema and yeast. Legs are warm to touch, mild redness. Superficial wound on the medial aspect just above her Achilles on the left side & small wound on her right lower extremity, bandages not taken down SKIN: Otherwise, warm and without rash. NEUROLOGIC: Nonfocal and appropriate. PIV Labs Lab Laboratory Tests Test 01/02/20 04:15 White Blood Count 8.0 x10^3/uL (4.0-11.0) Red Blood Count 5.21 x10^6/uL (3.50-5.40) Hemoglobin 13.7 g/dL (12.0-15.5) Hematocrit 42.7 % (36.0-47.0) Mean Corpuscular Volume 82 fL (79-100) Mean Corpuscular Hemoglobin 26 pg (25-35) Mean Corpuscular Hemoglobin Concent 32 g/dL (31-37) Red Cell Distribution Width 16.4 % (11.5-14.5) Platelet Count 251 x10^3/uL (140-400) Neutrophils (%) (Auto) 60 % (31-73) Lymphocytes (%) (Auto) 29 % (24-48) Monocytes (%) (Auto) 9 % (0-9) Eosinophils (%) (Auto) 2 % (0-3) Basophils (%) (Auto) 1 % (0-3) Neutrophils # (Auto) 4.8 x10^3/uL (1.8-7.7) Lymphocytes # (Auto) 2.3 x10^3/uL (1.0-4.8) Monocytes # (Auto) 0.7 x10^3/uL (0.0-1.1) Eosinophils # (Auto) 0.1 x10^3/uL (0.0-0.7) Basophils # (Auto) 0.0 x10^3/uL (0.0-0.2) Micro Microbiology 12/30/19 Blood Culture - Preliminary, Resulted NO GROWTH AFTER 2 DAYS Objective Assessment Bilateral lower extremity cellulitis. Right basilar infiltrate. Acute kidney injury. Morbid obesity. Tinea. Obstructive sleep apnea. Plan Plan of Care change antibiotics to po augmentin x 5 days Probitocs CBC in am f/u BC Leg elevation d/c home ok D/w at bedside MIGUEL ÁNGEL JOSE MD Jan 02, 2020 09:02
[2020-01-02] MEDS: AMOXICILLIN/K CLAV 875/125MG TABLET. PO SCH ×2 (10:05→20:26)
[2020-01-02 10:41] VITALS: BP 154/58
[2020-01-02] MEDS ORDERED: AMOX1TAB11 PO (11:07)
[2020-01-02 14:25] VITALS: BP 128/66
--- NOTE | 2020-01-02 14:28 | PDOC ---
PULMONARY PROGRESS NOTES Subjective no soa Vitals Vital Signs Date Time Temp Pulse Resp B/P (MAP) Pulse Ox O2 Delivery O2 Flow Rate FiO2 01/02/20 14:25 98.2 72 20 128/66 (86) 94 Room Air 98.2 ROS: No Chest Pain, No Increase Cough General: Alert, No acute distress Lungs: Other (decrease bs) Cardiovascular: S1 Abdomen: Soft, Other (obese) Neuro Exam: Alert Extremities: Other (1+edema) Labs Laboratory Tests Test 01/02/20 04:15 White Blood Count 8.0 x10^3/uL (4.0-11.0) Red Blood Count 5.21 x10^6/uL (3.50-5.40) Hemoglobin 13.7 g/dL (12.0-15.5) Hematocrit 42.7 % (36.0-47.0) Mean Corpuscular Volume 82 fL (79-100) Mean Corpuscular Hemoglobin 26 pg (25-35) Mean Corpuscular Hemoglobin Concent 32 g/dL (31-37) Red Cell Distribution Width 16.4 % (11.5-14.5) Platelet Count 251 x10^3/uL (140-400) Neutrophils (%) (Auto) 60 % (31-73) Lymphocytes (%) (Auto) 29 % (24-48) Monocytes (%) (Auto) 9 % (0-9) Eosinophils (%) (Auto) 2 % (0-3) Basophils (%) (Auto) 1 % (0-3) Neutrophils # (Auto) 4.8 x10^3/uL (1.8-7.7) Lymphocytes # (Auto) 2.3 x10^3/uL (1.0-4.8) Monocytes # (Auto) 0.7 x10^3/uL (0.0-1.1) Eosinophils # (Auto) 0.1 x10^3/uL (0.0-0.7) Basophils # (Auto) 0.0 x10^3/uL (0.0-0.2) Laboratory Tests Test 01/02/20 04:15 White Blood Count 8.0 x10^3/uL (4.0-11.0) Red Blood Count 5.21 x10^6/uL (3.50-5.40) Hemoglobin 13.7 g/dL (12.0-15.5) Hematocrit 42.7 % (36.0-47.0) Mean Corpuscular Volume 82 fL (79-100) Mean Corpuscular Hemoglobin 26 pg (25-35) Mean Corpuscular Hemoglobin Concent 32 g/dL (31-37) Red Cell Distribution Width 16.4 % (11.5-14.5) Platelet Count 251 x10^3/uL (140-400) Neutrophils (%) (Auto) 60 % (31-73) Lymphocytes (%) (Auto) 29 % (24-48) Monocytes (%) (Auto) 9 % (0-9) Eosinophils (%) (Auto) 2 % (0-3) Basophils (%) (Auto) 1 % (0-3) Neutrophils # (Auto) 4.8 x10^3/uL (1.8-7.7) Lymphocytes # (Auto) 2.3 x10^3/uL (1.0-4.8) Monocytes # (Auto) 0.7 x10^3/uL (0.0-1.1) Eosinophils # (Auto) 0.1 x10^3/uL (0.0-0.7) Basophils # (Auto) 0.0 x10^3/uL (0.0-0.2) Medications Active Scripts Medications Dose Route/Sig Max Daily Dose Days Date Category Amox Tr-K Clv 875-125 Mg Tab (Amoxicillin/Potassium Clav) 1 Each Tablet 1 Tab PO BID 5 01/02/20 Rx Diovan (Valsartan) 80 Mg Tablet 80 Mg PO DAILY 12/30/19 Reported Klor-Con M20 (Potassium Chloride) 20 Meq Tab.er.prt 1 Tab PO DAILY 30 12/30/19 Reported Lasix (Furosemide) 40 Mg Tablet 1 Tab PO DAILY 30 12/30/19 Reported Daily Vitamin (Multivitamin) 1 Each Tablet 1 Each PO DAILY 12/14/13 Reported Estroven Energy Capsule (Mv,Ca,Min/Fa/Herbal No.158) 400 Mcg Capsule 400 Mcg PO DAILY 12/14/13 Reported Acetaminophen Extra Strength (Acetaminophen) 500 Mg Tablet 500 Mg PO PRN 12/14/13 Reported Impression . 1. Abnormal chest x-ray. Suspect it is atelectasis. I do not believe she has pneumonia. 2. History of [id number] smoking. Suspect chronic obstructive pulmonary disease. 3. Obstructive sleep apnea-hypopnea syndrome, untreated. 4. Acute kidney injury. 5. Lower extremity cellulitis. 6. Morbid obesity. 7. Hypertension. 8. Diabetes mellitus. 9. Tobacco habituation. Plan . 1. I had a long discussion with her regarding the smoking cessation. I have advised her to stop smoking forever. 2. Continue bronchodilator. 3. PFTs as an outpatient. 4. 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 I have recommended her to obtain CPAP and use it during sleep. 5. CT of the chest reviewed. Mild bilateral GG infiltrates. could be related to smoking related ILD vs mild CHF. She also has a history of [id number] smoking. repeat ct chest in 2 months 6. Continue Lovenox for DVT prophylaxis. 7. Continue antibiotic per ID. 8. I have advised her to lose weight and exercise. 9. May consider echocardiogram if not done. She does have lower extremity edema. AN CRUZ MD Jan 02, 2020 14:28
[2020-01-02 19:00] VITALS: BP 139/86
[2020-01-02 23:00] VITALS: BP 141/69
[2020-01-03 03:00] VITALS: BP 134/52
[2020-01-03] MEDS: ACETAMINOPHEN 325 MG TABLET. PO PRN (04:01)
[2020-01-03 06:45] VITALS: BP 116/76
[2020-01-03] MEDS: IPRATRPIUM/ALBUTEROL 0.5/2.5MG 3 ML NEBU. NEB SCH ×2 (07:03→11:01)
[2020-01-03] MEDS: LOSARTAN POTASSIUM 50 MG TABLET. PO SCH (07:52)
[2020-01-03] MEDS: AMOXICILLIN/K CLAV 875/125MG TABLET. PO SCH (07:53)
[2020-01-03] MEDS: MULTIVITAMIN with MINERAL TABLET. PO SCH (07:53)
[2020-01-03] MEDS: POTASSIUM CHLORIDE 20 MEQ TABLET.ER. PO SCH (07:53)
[2020-01-03] MEDS: LACTOBACILLUS RHAMNOSUS GG 1 CAPSULE. PO SCH (07:53)
[2020-01-03] MEDS: FUROSEMIDE 40 MG TABLET. PO SCH (07:53)
[2020-01-03] MEDS: FLUTICASONE 50MCG/NASAL SPRAY 16GM BOTTLE. NS SCH (07:54)
--- NOTE | 2020-01-03 09:25 | PDOC ---
PROGRESS NOTES Chief Complaint Chief Complaint A/P: New groundglass opacities noted on CT of the chest this morning (we are to check her for COVID 19) Tobacco abuse - History of [id number] smoking. Suspect chronic obstructive pulmonary disease. Bilateral lower ext cellulitis Left leg ulcer Peripheral vascular disease noted on ultrasound of lower extremities Right pneumonia Overweight Diabetes hypertension and tobacco abuse ROSELIA - likely vasomotor nephropathy Tinea History of Present Illness History of Present Illness Ms Jimenez is a 54-year-old female with a history of hypertension, morbid obesity and tobacco abuse, who states for the last year or so she has had problems with increased swelling of her lower extremities. She followed up with her primary care doctor and in November she began to take Lasix to try to improve the swelling. She states the swelling improved; however, she developed a sore, particularly in the left base of her lower leg and then developed a little bit more sores on her right lower extremity. Admitted for bilateral LE cellulitis and some hypoxia initially. Hypoxia improved with diuresis. Cellulitis improved with antibiotics. Consult: Pulm and ID 12/30: Monophasic flow bilateral LE on arterial dopplers 12/31: Her CAT scan of the chest is showing some groundglass opacities, COVID-19 pending 01/01: Feeling improved. Off O2. bedside to discuss need to await results for COVID-19. No shortness of breath. Still with some left calf pain. Reviewed arterial ultrasound patient she would like to go home today on oral antibiotics after discussion with ID. Feeling well, off O2. tolerating oral antibiotics well. Still awaiting COVID 19 results. Pain nearly resolved. Elevating legs well. Vitals Vitals Vital Signs Date Time Temp Pulse Resp B/P (MAP) Pulse Ox O2 Delivery O2 Flow Rate FiO2 01/03/20 07:52 55 116/76 01/03/20 07:05 93 Room Air 01/03/20 06:45 98.1 18 98.1 Physical Exam Physical Exam GENERAL: Propped up in bed, alert in NAD LUNGS: Clear to auscultation bilaterally. 1.5L O2 HEART: S1, S2 distant. ABDOMEN: Soft, nontender. No guarding, no rebound. EXTREMITIES: No clubbing or cyanosis. 2+ bilateral lower extremity both legs with clean dry intact compression stocking edema and yeast. Legs are warm to touch, mild redness. Superficial wound on the medial aspect just above her Achilles on the left side & small wound on her right lower extremity, bandages not taken down SKIN: Otherwise, warm and without rash. NEUROLOGIC: Nonfocal and appropriate. PIV General: Alert, Oriented X3, Cooperative, mild distress Lungs: Other (decrease bs) Abdomen: Normal bowel sounds, Soft Extremities: No cyanosis Assessment and Plan Assessmemt and Plan Problems Medical Problems: (1) Bilateral lower leg cellulitis Status: Acute (2) Leg ulcer, left Status: Acute (3) Peripheral edema Status: Acute Comment Review of Relevant I have reviewed the following items jyotsna (where applicable) has been applied. Labs Laboratory Tests Test 01/02/20 04:15 White Blood Count 8.0 x10^3/uL (4.0-11.0) Red Blood Count 5.21 x10^6/uL (3.50-5.40) Hemoglobin 13.7 g/dL (12.0-15.5) Hematocrit 42.7 % (36.0-47.0) Mean Corpuscular Volume 82 fL (79-100) Mean Corpuscular Hemoglobin 26 pg (25-35) Mean Corpuscular Hemoglobin Concent 32 g/dL (31-37) Red Cell Distribution Width 16.4 % (11.5-14.5) Platelet Count 251 x10^3/uL (140-400) Neutrophils (%) (Auto) 60 % (31-73) Lymphocytes (%) (Auto) 29 % (24-48) Monocytes (%) (Auto) 9 % (0-9) Eosinophils (%) (Auto) 2 % (0-3) Basophils (%) (Auto) 1 % (0-3) Neutrophils # (Auto) 4.8 x10^3/uL (1.8-7.7) Lymphocytes # (Auto) 2.3 x10^3/uL (1.0-4.8) Monocytes # (Auto) 0.7 x10^3/uL (0.0-1.1) Eosinophils # (Auto) 0.1 x10^3/uL (0.0-0.7) Basophils # (Auto) 0.0 x10^3/uL (0.0-0.2) Microbiology 12/30/19 Blood Culture - Preliminary, Resulted NO GROWTH AFTER 3 DAYS Medications Current Medications Sodium Chloride 1,000 ml @ 75 mls/hr 1X ONCE IV Last administered on 12/30/19at 01:02; Start 12/30/19 at 01:00; Stop 12/30/19 at 14:19; Status DC Clindamycin Phosphate 50 ml @ 100 mls/hr 1X ONCE IV Last administered on 12/30/19at 01:01; Start 12/30/19 at 01:00; Stop 12/30/19 at 01:29; Status DC Furosemide (Lasix) 40 mg 1X ONCE PO Last administered on 12/30/19at 04:10; Start 12/30/19 at 04:00; Stop 12/30/19 at 04:01; Status DC Ondansetron HCl (Zofran) 4 mg PRN Q8HRS PRN IV NAUSEA/VOMITING 1ST CHOICE; Start 12/30/19 at 03:30; Stop 12/31/19 at 03:29; Status DC Acetaminophen (Tylenol) 500 mg PRN Q6HRS PRN PO PAIN Last administered on 12/30/19at 12:04; Start 12/30/19 at 11:00; Stop 12/31/19 at 16:12; Status DC Furosemide (Lasix) 40 mg DAILY PO Last administered on 01/03/20at 07:53; Start 12/30/19 at 11:00 Potassium Chloride (Klor-Con) 20 meq DAILY PO Last administered on 01/03/20at 07:53; Start 12/30/19 at 11:00 Multivitamins (Thera M Plus) 1 tab DAILY PO Last administered on 01/03/20at 07:53; Start 12/30/19 at 11:00 Non-Formulary Medication (Mv,Ca,Min/Fa/ Herbal No.158 (Estroven Energy Capsule)) 400 mcg DAILY PO ; Start 12/31/19 at 09:00; Status UNV Losartan Potassium (Cozaar) 50 mg DAILY PO Last administered on 01/03/20at 07:52; Start 12/30/19 at 11:00 Piperacillin Sod/ Tazobactam Sod 3.375 gm/Sodium Chloride 50 ml @ 100 mls/hr Q6HRS IV Last administered on 01/02/20at 06:06; Start 12/30/19 at 18:00; Stop 01/02/20 at 09:01; Status DC Linezolid (Zyvox) 600 mg BID PO Last administered on 01/02/20at 07:30; Start 12/30/19 at 13:00; Stop 01/02/20 at 09:01; Status DC Fluconazole (Diflucan) 200 mg DAILY PO Last administered on 01/02/20at 07:29; Start 12/30/19 at 13:00; Stop 01/02/20 at 09:01; Status DC Sodium Chloride (Normal Saline Flush) 3 ml QSHIFT PRN IV AFTER MEDS AND BLOOD DRAWS; Start 12/30/19 at 14:00 Ondansetron HCl (Zofran) 4 mg PRN Q4HRS PRN IV NAUSEA/VOMITING; Start 12/30/19 at 14:00 Acetaminophen (Tylenol) 650 mg PRN Q4HRS PRN PO TEMP OVER 100.4F OR MILD PAIN Last administered on 01/03/20at 04:01; Start 12/30/19 at 14:00 Al Hydroxide/Mg Hydroxide (Mylanta Plus Xs) 30 ml PRN DAILY PRN PO HEARTBURN / GAS; Start 12/30/19 at 14:00 Clonidine HCl (Catapres) 0.1 mg PRN Q6HRS PRN PO SBP>160 OR DBP>90; Start at 14:00 Docusate Sodium (Colace) 100 mg PRN BID PRN PO HARD STOOLS; Start 12/30/19 at 14:00 Albuterol/ Ipratropium (Duoneb) 3 ml Q4HRS W/A NEB Last administered on 01/03/20at 07:03; Start 12/30/19 at 14:00 Guaifenesin (Robitussin) 200 mg PRN Q4HRS PRN PO COUGH; Start 12/30/19 at 14:00 Enoxaparin Sodium (Lovenox 40mg Syringe) 40 mg Q24H SQ ; Start 12/30/19 at 14:00; Status UNV Enoxaparin Sodium (Lovenox 60mg Syringe) 60 mg Q12HR SQ Last administered on 01/03/20at 07:54; Start 12/30/19 at 21:00 Lactobacillus Rhamnosus (Culturelle) 1 cap BID PO Last administered on 01/03/20at 07:53; Start 12/31/19 at 21:00 Fluticasone Propionate (Flonase) 2 spray DAILY NS Last administered on 01/03/20at 07:54; Start 01/01/20 at 09:00 Amoxicillin/ Clavulanate Potassium (Augmentin 875/ 125mg) 1 tab BID PO Last administered on 01/03/20at 07:53; Start 01/02/20 at 09:00 Active Scripts Active Amox Tr-K Clv 875-125 Mg Tab (Amoxicillin/Potassium Clav) 1 Each Tablet 1 Tab PO BID 5 Days Reported Diovan (Valsartan) 80 Mg Tablet 80 Mg PO DAILY Klor-Con M20 (Potassium Chloride) 20 Meq Tab.er.prt 1 Tab PO DAILY 30 Days Lasix (Furosemide) 40 Mg Tablet 1 Tab PO DAILY 30 Days Daily Vitamin (Multivitamin) 1 Each Tablet 1 Each PO DAILY Estroven Energy Capsule (Mv,Ca,Min/Fa/Herbal No.158) 400 Mcg Capsule 400 Mcg PO DAILY Acetaminophen Extra Strength (Acetaminophen) 500 Mg Tablet 500 Mg PO PRN Vitals/I & O Vital Sign - Last 24 Hours 01/02/20 01/02/20 01/02/20 01/02/20 10:41 12:44 14:25 16:01 Temp 97.9 98.2 97.9 98.2 Pulse 85 72 Resp 20 B/P (MAP) 154/58 (90) 128/66 (86) Pulse Ox 92 98 94 96 O2 Delivery Room Air Room Air Room Air Room Air 01/02/20 01/02/20 01/02/20 01/03/20 19:00 20:00 23:00 03:00 Temp 98.2 98.7 98.6 98.2 98.7 98.6 Pulse 79 74 64 Resp 20 18 18 B/P (MAP) 139/86 (103) 141/69 (93) 134/52 (79) Pulse Ox 94 92 91 O2 Delivery Room Air Room Air Room Air Room Air 01/03/20 01/03/20 01/03/20 06:45 07:05 07:52 Temp 98.1 98.1 Pulse 55 55 Resp 18 B/P (MAP) 116/76 (89) 116/76 Pulse Ox 93 93 O2 Delivery Room Air Room Air Intake and Output 01/02/20 01/02/20 01/03/20 15:00 23:00 07:00 Intake Total 560 ml 1140 ml Balance 560 ml 1140 ml RONIT BATES MD Jan 03, 2020 09:25
--- NOTE | 2020-01-03 10:15 | NUR ---
SW following. Discussed with RN. Discharge order for home with self care. No SW needs.
--- NOTE | 2020-01-03 10:32 | PDOC ---
Infectious Disease Note Subjective Subjective Legs feel a little less swollen, some pain L/R Denies F/C/aches/N/V/D/SOA ROS ROS Nausea vomiting diarrhea chest pain shortness of breath Vital Sign Vital Signs Vital Signs Date Time Temp Pulse Resp B/P (MAP) Pulse Ox O2 Delivery O2 Flow Rate FiO2 01/03/20 08:05 Room Air 01/03/20 07:52 55 116/76 01/03/20 07:05 93 01/03/20 06:45 98.1 18 98.1 Physical Exam PHYSICAL EXAM GENERAL: Propped up in bed, alert in NAD LUNGS: Clear to auscultation bilaterally. 1.5L O2 HEART: S1, S2 distant. ABDOMEN: Soft, nontender. No guarding, no rebound. EXTREMITIES: No clubbing or cyanosis. 2+ bilateral lower extremity both legs with clean dry intact compression stocking edema and yeast. Legs are warm to touch, mild redness. Superficial wound on the medial aspect just above her Achilles on the left side & small wound on her right lower extremity, bandages not taken down SKIN: Otherwise, warm and without rash. NEUROLOGIC: Nonfocal and appropriate. PIV Labs Micro Microbiology 12/30/19 Blood Culture - Preliminary, Resulted NO GROWTH AFTER 2 DAYS Objective Assessment Bilateral lower extremity cellulitis. Right basilar infiltrate. Acute kidney injury. Morbid obesity. Tinea. Obstructive sleep apnea. Plan Plan of Care po augmentin x 5 days Probitocs CBC in am f/u BC Leg elevation d/c home MIGUEL ÁNGEL [place] MD Jan 03, 2020 10:32
[2020-01-03 10:38] VITALS: BP 104/49
--- NOTE | 2020-01-03 11:33 | PDOC ---
PULMONARY PROGRESS NOTES Subjective no soa Vitals Vital Signs Date Time Temp Pulse Resp B/P (MAP) Pulse Ox O2 Delivery O2 Flow Rate FiO2 01/03/20 11:02 Room Air 01/03/20 10:38 97.8 77 20 104/49 (67) 93 97.8 ROS: No Chest Pain, No Increase Cough General: Alert, No acute distress Lungs: Other (decrease bs) Cardiovascular: S1 Abdomen: Soft, Other (obese) Neuro Exam: Alert Extremities: Other (1+edema) Labs Laboratory Tests Test 01/02/20 04:15 White Blood Count 8.0 x10^3/uL (4.0-11.0) Red Blood Count 5.21 x10^6/uL (3.50-5.40) Hemoglobin 13.7 g/dL (12.0-15.5) Hematocrit 42.7 % (36.0-47.0) Mean Corpuscular Volume 82 fL (79-100) Mean Corpuscular Hemoglobin 26 pg (25-35) Mean Corpuscular Hemoglobin Concent 32 g/dL (31-37) Red Cell Distribution Width 16.4 % (11.5-14.5) Platelet Count 251 x10^3/uL (140-400) Neutrophils (%) (Auto) 60 % (31-73) Lymphocytes (%) (Auto) 29 % (24-48) Monocytes (%) (Auto) 9 % (0-9) Eosinophils (%) (Auto) 2 % (0-3) Basophils (%) (Auto) 1 % (0-3) Neutrophils # (Auto) 4.8 x10^3/uL (1.8-7.7) Lymphocytes # (Auto) 2.3 x10^3/uL (1.0-4.8) Monocytes # (Auto) 0.7 x10^3/uL (0.0-1.1) Eosinophils # (Auto) 0.1 x10^3/uL (0.0-0.7) Basophils # (Auto) 0.0 x10^3/uL (0.0-0.2) Medications Active Scripts Medications Dose Route/Sig Max Daily Dose Days Date Category Amox Tr-K Clv 875-125 Mg Tab (Amoxicillin/Potassium Clav) 1 Each Tablet 1 Tab PO BID 5 01/02/20 Rx Diovan (Valsartan) 80 Mg Tablet 80 Mg PO DAILY 12/30/19 Reported Klor-Con M20 (Potassium Chloride) 20 Meq Tab.er.prt 1 Tab PO DAILY 30 12/30/19 Reported Lasix (Furosemide) 40 Mg Tablet 1 Tab PO DAILY 30 12/30/19 Reported Daily Vitamin (Multivitamin) 1 Each Tablet 1 Each PO DAILY 12/14/13 Reported Estroven Energy Capsule (Mv,Ca,Min/Fa/Herbal No.158) 400 Mcg Capsule 400 Mcg PO DAILY 12/14/13 Reported Acetaminophen Extra Strength (Acetaminophen) 500 Mg Tablet 500 Mg PO PRN 12/14/13 Reported Impression . 1. Abnormal chest x-ray. Suspect it is atelectasis. I do not believe she has pneumonia. 2. History of [id number] smoking. Suspect chronic obstructive pulmonary disease. 3. Obstructive sleep apnea-hypopnea syndrome, untreated. 4. Acute kidney injury. 5. Lower extremity cellulitis. 6. Morbid obesity. 7. Hypertension. 8. Diabetes mellitus. 9. Tobacco habituation. Plan . 1. I had a long discussion with her regarding the smoking cessation. I have advised her to stop smoking forever. 2. Continue bronchodilator. 3. PFTs as an outpatient. 4. 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 I have recommended her to obtain CPAP and use it during sleep. 5. CT of the chest reviewed. Mild bilateral GG infiltrates. could be related to smoking related ILD vs mild CHF. She also has a history of [id number] smoking. repeat ct chest in 2 months 6. Continue Lovenox for DVT prophylaxis. 7. Continue antibiotic per ID. 8. I have advised her to lose weight and exercise. 9. May consider echocardiogram if not done. She does have lower extremity edema. AN CRUZ MD Jan 03, 2020 11:33
--- NOTE | 2020-01-03 11:41 | PDOC3 ---
Discharge Summary Visit Information Date of Admission: Dec 30, 2019 Date of Discharge: Jan 03, 2020 Admitting Diagnosis: Bilateral LE cellulitis Final Diagnosis Problems Medical Problems: (1) Bilateral lower leg cellulitis Status: Acute (2) Leg ulcer, left Status: Acute (3) Peripheral edema Status: Acute Brief Hospital Course Allergies Allergies Coded Allergies Type Severity Reaction Last Updated Verified Latex, Natural Rubber Allergy Intermediate Rash 05/29/15 Yes Vital Signs Vital Signs Date Time Temp Pulse Resp B/P (MAP) Pulse Ox O2 Delivery O2 Flow Rate FiO2 01/03/20 11:02 Room Air 01/03/20 10:38 97.8 77 20 104/49 (67) 93 97.8 Lab Results Laboratory Tests Test 01/02/20 04:15 White Blood Count 8.0 x10^3/uL (4.0-11.0) Red Blood Count 5.21 x10^6/uL (3.50-5.40) Hemoglobin 13.7 g/dL (12.0-15.5) Hematocrit 42.7 % (36.0-47.0) Mean Corpuscular Volume 82 fL (79-100) Mean Corpuscular Hemoglobin 26 pg (25-35) Mean Corpuscular Hemoglobin Concent 32 g/dL (31-37) Red Cell Distribution Width 16.4 % (11.5-14.5) Platelet Count 251 x10^3/uL (140-400) Neutrophils (%) (Auto) 60 % (31-73) Lymphocytes (%) (Auto) 29 % (24-48) Monocytes (%) (Auto) 9 % (0-9) Eosinophils (%) (Auto) 2 % (0-3) Basophils (%) (Auto) 1 % (0-3) Neutrophils # (Auto) 4.8 x10^3/uL (1.8-7.7) Lymphocytes # (Auto) 2.3 x10^3/uL (1.0-4.8) Monocytes # (Auto) 0.7 x10^3/uL (0.0-1.1) Eosinophils # (Auto) 0.1 x10^3/uL (0.0-0.7) Basophils # (Auto) 0.0 x10^3/uL (0.0-0.2) Brief Hospital Course Ms Jimenez is a 54-year-old female with a history of hypertension, morbid obesity and tobacco abuse, who states for the last year or so she has had problems with increased swelling of her lower extremities. She followed up with her primary care doctor and in November she began to take Lasix to try to improve the swelling. She states the swelling improved; however, she developed a sore, particularly in the left base of her lower leg and then developed a little bit more sores on her right lower extremity. Admitted for bilateral LE cellulitis and some hypoxia initially. Hypoxia improved with diuresis. Cellulitis improved with antibiotics. Consult: Pulm and ID 12/30: Monophasic flow bilateral LE on arterial dopplers 12/31: Her CAT scan of the chest is showing some groundglass opacities, COVID-19 pending 01/01: Feeling improved. Off O2. bedside to discuss need to await results for COVID-19. No shortness of breath. Still with some left calf pain. Reviewed arterial ultrasound patient she would like to go home today on oral antibiotics after discussion with ID. Feeling well, off O2. tolerating oral antibiotics well. Still awaiting COVID 19 results. Pain nearly resolved. Elevating legs well. Problem list: New groundglass opacities noted on CT of the chest this morning (we are to check her for COVID 19) Tobacco abuse - History of [id number] smoking. Suspect chronic obstructive pulmonary disease. Bilateral lower ext cellulitis Left leg ulcer Peripheral vascular disease noted on ultrasound of lower extremities Right pneumonia Overweight Diabetes hypertension and tobacco abuse ROSELIA - likely vasomotor nephropathy Tinea Greater than 30 minutes spent on d/c Discharge Information Condition at Discharge: Improved Follow Up: Weeks Disposition/Orders: D/C to Home Scheduled Amoxicillin/Potassium Clav (Amox Tr-K Clv 875-125 Mg Tab) 1 Each Tablet, 1 TAB PO BID for Cellulitis for 5 Days, #10 Prescribed by: RONIT BATES MD on 01/02/20 1107 Furosemide (Lasix) 40 Mg Tablet, 1 TAB PO DAILY for swelling for 30 Days, #30 Ref 0 (Reported) Entered as Reported by: TERE DALE on 12/30/19 0512 Last Action: Continued on 12/30/19 1053 by RODRIGUE CHURCHILL MD Multivitamin (Daily Vitamin) 1 Each Tablet, 1 EACH PO DAILY, (Reported) Entered as Reported by: SHANTAL MONREAL on 12/14/131155 Last Action: Converted on 12/30/191052 by RODRIGUE CHURCHILL MD Mv,Ca,Min/Fa/Herbal No.158 ([employer] Capsule) 400 Mcg Capsule, 400 MCG PO DAILY, (Reported) Entered as Reported by: SHANTAL MONREAL on 12/14/131155 Last Action: Converted on 12/30/191052 by RODRIGUE CHURCHILL MD Potassium Chloride (Klor-Con M20) 20 Meq Tab.er.prt, 1 TAB PO DAILY for supplement, taking lasix for 30 Days, #30 Ref 0 (Reported) Entered as Reported by: TERE DALE on 12/30/19511 Last Action: Continued on 12/30/191052 by RODRIGUE CHURCHILL MD Valsartan (Diovan) 80 Mg Tablet, 80 MG PO DAILY for HTN, (Reported) Entered as Reported by: TERE DALE on 12/30/19511 Last Action: Converted on 12/30/191052 by RODRIGUE CHURCHILL MD Scheduled PRN Acetaminophen (Acetaminophen Extra Strength) 500 Mg Tablet, 500 MG PO for PAIN, (Reported) Entered as Reported by: SHANTAL MONREAL on 12/14/131155 Last Action: Continued on 12/30/191052 by RODRIGUE CHURCHILL MD Discontinued Medications Ibuprofen (Ibuprofen) 200 Mg Capsule, 200 MG PO for PAIN, (Reported) Entered as Reported by: SHANTAL MONREAL on 12/14/131155 Last Action: HELD on 12/30/191052 by RODRIGUE CHURCHILL MD Justicifation of Admission Dx: Justifications for Admission: Justification of Admission Dx: Yes Sepsis: Infection Cellulitis: Cellulitis RONIT BATES MD Jan 03, 2020 11:41
--- NOTE | 2020-01-03 12:08 | NUR ---
Pt discharged home with self care. Discharge instructions and prescriptions discussed. Pt verbalized understanding. Wound pics taken. Dressings changed. IV removed. Pt taken via wheelchair and was secured in car with .
== END 2020-01-03 12:10 | disposition home or self-care (01) | DRG 177 ==
LOC: ER 00:05 → OBSVTOIN 03:27 → 2 SOUTH 03:27 → 4 NORTH 12-31 07:25
PROVIDERS: ADMIT Internal Medicine; ATTEND Internal Medicine
DX: J69.0 Pneumonitis due to inhalation of food and vomit (principal); N17.0 Acute kidney failure with tubular necrosis; L03.116 Cellulitis of left lower limb; Z68.43 Body mass index [BMI] 50.0-59.9, adult; L03.115 Cellulitis of right lower limb; L97.921 Non-pressure chronic ulcer of unspecified part of left lower leg limited to breakdown of skin; I10 Essential (primary) hypertension; F17.210 Nicotine dependence, cigarettes, uncomplicated; E66.01 Morbid (severe) obesity due to excess calories; B35.9 Dermatophytosis, unspecified; G47.33 Obstructive sleep apnea (adult) (pediatric); M48.00 Spinal stenosis, site unspecified; E11.51 Type 2 diabetes mellitus with diabetic peripheral angiopathy without gangrene; R09.02 Hypoxemia; Z20.828 Contact with and (suspected) exposure to other viral communicable diseases; Z98.51 Tubal ligation status; Z91.040 Latex allergy status; Z91.048 Other nonmedicinal substance allergy status; Z82.49 Family history of ischemic heart disease and other diseases of the circulatory system
CPT/HCPCS: 36415; 71045; 71250; 80053; 80069; 82550; 83880; 84484; 85025; 87040; 93005; 93925; 94640; 94760; 96365; 99285; 99406; J1650; J2543; J3490; J7030; 97535-GO; G0378; U0003-CS

== ENCOUNTER 2020-01-22 01:16 | Emergency (ER) | payer BC, MEDICARE ==
[~2020-01-22] VITALS: Ht 162.6 cm; Wt 144.5 kg
[~2020-01-22 01:16] MED LIST changes: +AMOX1TAB11 PO; +FURO-68 PO; +POTA20TA4 PO; +VALS80TA3 PO
[2020-01-22] MEDS ORDERED: CLIN300C8 PO (01:49)
--- NOTE | 2020-01-22 01:49 | PHYS DOC ---
Past Medical History Past Medical History: Diabetes-Type II, Hypertension, Other Additional Past Medical Histor: OBESITY,SPINAL STENOSIS Past Surgical History: Tubal ligation, Other Additional Past Surgical Histo: hernia repair, Smoking Status: Current Every Day Smoker Alcohol Use: Rarely Drug Use: None General Adult EDM: Chief Complaint: CELLULITIS HPI: HPI: Patient is a 55 year old male presents for evaluation of cellulitis bilateral lower extremity. Patient states few weeks ago she was admitted to the hospital and then discharged home on on antibiotics. Patient states she took approximately 5 days of Augmentin. Patient states today she noticed large amount of drainage from left calf wound. Patient states wound was present during previous admission but is currently slightly larger. Patient states there is new and increased drainage. Drainage has saturated through her dressing. Redness is present bilateral lower extremities left greater than right. Patient denies any fevers or chills. Discussed hospitalization versus outpatient treatment. At this time patient would prefer outpatient antibiotics. Patient will be given a dose of van comycin. She will be discharged home on clindamycin. Patient advised to continue with current wound care. Follow-up with the primary care physician in 5 to 7 days. Review of Systems: Review of Systems: Constitutional: Denies fever or chills. [] Eyes: Denies change in visual acuity. [] HENT: Denies nasal congestion or sore throat. [] Respiratory: Denies cough or shortness of breath. [] Cardiovascular: Denies chest pain or edema. [] GI: Denies abdominal pain, nausea, vomiting, bloody stools or diarrhea. [] : Denies dysuria. [] Musculoskeletal: Denies back pain or joint pain. [] Integument: Positive cellulitis positive ulcer Neurologic: Denies headache, focal weakness or sensory changes. [] Endocrine: Denies polyuria or polydipsia. [] Lymphatic: Denies swollen glands. [] Psychiatric: Denies depression or anxiety. [] Heart Score: Risk Factors: Risk Factors: DM, Current or recent (<one month) smoker, HTN, HLP, family history of CAD, obesity. Risk Scores: Score 0 - 3: 2.5% MACE over next 6 weeks - Discharge Home Score 4 - 6: 20.3% MACE over next 6 weeks - Admit for Clinical Observation Score 7 - 10: 72.7% MACE over next 6 weeks - Early Invasive Strategies Allergies: Allergies: Allergies Coded Allergies Type Severity Reaction Last Updated Verified Latex, Natural Rubber Allergy Intermediate Rash 05/29/15 Yes Physical Exam: PE: Constitutional: Well developed, well nourished, no acute distress, non-toxic appearance. [] HENT: Normocephalic, atraumatic, bilateral external ears normal, oropharynx alireza st, no oral exudates, nose normal. [] Eyes: PERRLA, EOMI, conjunctiva normal, no discharge. [] Neck: Normal range of motion, no tenderness, supple, no stridor. [] Cardiovascular:Heart rate regular rhythm, no murmur [] Lungs & Thorax: Bilateral breath sounds clear to auscultation [] Abdomen: Bowel sounds normal, soft, no tenderness, no masses, no pulsatile masses. [] Skin: Warm, dry, no erythema, no rash. [] Back: No tenderness, no CVA tenderness. [] Extremities: Erythema bilateral lower extremities mid calf to ankle. Left leg wound quarter size that appears to be draining clear fluid Neurologic: Alert and oriented X 3, normal motor function, normal sensory function, no focal deficits noted. [] Psychologic: Affect normal, judgement normal, mood normal. [] EKG: EKG: [] Radiology/Procedures: Radiology/Procedures: [] Course & Med Decision Making: Course & Med Decision Making Pertinent Labs and Imaging studies reviewed. (See chart for details) [] Dragon Disclaimer: Dragon Disclaimer: This electronic medical record was generated, in whole or in part, using a voice recognition dictation system. Departure Departure Impression: Primary Impression: Cellulitis of both lower extremities Disposition: 01 HOME, SELF-CARE Condition: STABLE Referrals: JAQUELINE SCHULTE MD (PCP) Patient Instructions: Cellulitis Scripts Clindamycin Hcl (CLINDAMYCIN HCL) 300 Mg Capsule 450 MG PO QID for 10 Days, #60 CAP Prov: MARK ELLIOTT DO 01/22/20 Justicifation of Admission Dx: Justifications for Admission: Justification of Admission Dx: Yes Sepsis: Infection Cellulitis: Cellulitis MARK ELLIOTT DO Jan 22, 2020 01:49
[2020-01-22] MEDS ORDERED: VANCOMYCIN 1GM IVPB FOR OMNI 250 ML IV ONE (02:00)
[2020-01-22 03:23] VITALS: BP 148/63
== END 2020-01-22 03:20 | disposition home or self-care (01) ==
LOC: ER 01:16
DX: L03.116 Cellulitis of left lower limb (principal); L03.115 Cellulitis of right lower limb; E11.9 Type 2 diabetes mellitus without complications; I10 Essential (primary) hypertension; F17.200 Nicotine dependence, unspecified, uncomplicated; E66.9 Obesity, unspecified; Z68.43 Body mass index [BMI] 50.0-59.9, adult; Z98.890 Other specified postprocedural states; Z98.51 Tubal ligation status; Z91.040 Latex allergy status
CPT/HCPCS: 96365; 99284; J3370

== ENCOUNTER 2020-06-26 08:24 | Outpatient (CLI) | payer BC, MEDICARE ==
[~2020-06-26] VITALS: Ht 162.6 cm; Wt 149.2 kg
[2020-06-26] VITALS (20 sets, daily range): BP systolic 116–189; BP diastolic 63–103
[~2020-06-26 08:24] MED LIST changes: +CLIN300C9 PO
[2020-06-26] MEDS ORDERED: IODIXANOL 320 MG/ML 100 ML VIAL. ONE (08:59)
[2020-06-26] MEDS ORDERED: LIDOCAINE WITH 8.4% SOD BICARB 3 ML DISP.SYRIN. ONE (08:59)
[2020-06-26] MEDS ORDERED: METF500T16 PO (09:11)
[2020-06-26] MEDS ORDERED: PHEN15CA2 PO (09:13)
[2020-06-26] MEDS ORDERED: CRESTOR5 MG PO (09:13)
[2020-06-26 09:28] LABS: BASO # 0.1 x10^3/uL (0.0-0.2); BASO % 1 % (0-3); EOS # 0.3 x10^3/uL (0.0-0.7); EOS % 4 % (0-3); HEMATOCRIT 44.7 % (36.0-47.0); HEMOGLOBIN 14.3 g/dL (12.0-15.5); LYMPH # 2.3 x10^3/uL (1.0-4.8); LYMPH % 29 % (24-48); MEAN CORPUSCULAR HEMOGLOBIN 26 pg (25-35); MEAN CORPUSCULAR HGB CONC 32 g/dL (31-37); MEAN CORPUSCULAR VOLUME 82 fL (79-100); MONO # 0.7 x10^3/uL (0.0-1.1); MONO % 9 % (0-9); NEUT # 4.4 x10^3/uL (1.8-7.7); NEUT % 57 % (31-73); PLATELET COUNT 268 x10^3/uL (140-400); RED BLOOD COUNT 5.47 x10^6/uL (3.50-5.40); RED CELL DISTRIBUTION WIDTH 15.2 % (11.5-14.5); WHITE BLOOD COUNT 7.7 x10^3/uL (4.0-11.0)
[2020-06-26 09:38] LABS: CALCIUM 9.1 mg/dL (8.5-10.1); CREATININE 1.1 mg/dL (0.6-1.0); GFR 51.4; POTASSIUM 4.1 mmol/L (3.5-5.1)
[2020-06-26 09:40] LABS: PROTHROMBIN TIME PATIENT 13.7 SEC (11.7-14.0)
[2020-06-26] MEDS ORDERED: MIDAZOLAM HCL/PF 5 MG/5 ML VIAL. ONE (10:10)
[2020-06-26] MEDS ORDERED: fentaNYL PF VIAL 250 MCG/5 ML VIAL ONE (10:10)
[2020-06-26] MEDS ORDERED: LIDOCAINE WITH 8.4% SOD BICARB 3 ML DISP.SYRIN. IJ ONE (10:15)
[2020-06-26] MEDS ORDERED: IODIXANOL 320 MG/ML 100 ML VIAL. IART ONE (10:15)
[2020-06-26] MEDS ORDERED: fentaNYL PF VIAL 250 MCG/5 ML VIAL IV ONE (10:15)
[2020-06-26] MEDS ORDERED: MIDAZOLAM HCL/PF 5 MG/5 ML VIAL. IV ONE (10:15)
[2020-06-26] MEDS ORDERED: IODIXANOL 320 MG/ML 50ML VIAL. ONE (10:25)
--- NOTE | 2020-06-26 11:27 | PDOC ---
MODERATE SEDATION ASSESSMENT RISKS/ALTERNATIVES Risks/Alternatives Risks and alternatives of this type of sedation and procedure discussed with: RISK/ALTERNATIVES: Patient H & P ON CHART H & P H & P on chart and reviewed for co-morbid conditions and appropriate labs. H&P ON CHART: Yes STATUS PREG STATUS ASSESSED: Yes MEDS/ALLERGIES REVIEWED Meds/Allergies Reviewed Medications and Allergies including time and route of recently administered narcotics and sedatives. MEDS/ALLERGIES REVIEWED: Yes ASA RATING ASA RATING: II AIRWAY ASSESSMENT Airway Assessment Airway patency, oral function limitations, presence of caps, crowns, dentures, partials, and ability to extend neck assessed. AIRWAY ASSESSMENT: Yes MALLAMPATI SCORE MALLAMPATI SCORE: II, III PRE-SEDATION ASSESSMENT PRE-SEDATION ASSESSMENT: Yes BALTA WILCOX MD Jun 26, 2020 11:27
--- NOTE | 2020-06-26 11:29 | PDOC ---
BRIEF OPERATIVE NOTE Pre-Op Diagnosis left leg wound Post-Op Diagnosis same Procedure Performed angiogram Surgeon Abhishek Anesthesia Type: Conscious Sedation Findings No significant atherosclerosis. PT is absent, however there is a prominent heal thy collateral that perfuses the wound rapidly and symetrically with other soft tissues and there is prompt hyperemia about the wound. Complications no immediate BALTA WILCOX MD Jun 26, 2020 11:29
[2020-06-26] MEDS ORDERED: LOSARTAN POTASSIUM 50 MG TABLET. PO ONE (12:00)
--- NOTE | 2020-06-26 13:38 | NUR ---
Right groin site reassessed, 11:00 position noted slightly firm, no bleeding noted. Otherwise, no other significant changes.
--- NOTE | 2020-06-26 14:41 | RAD ---
Procedure: Diagnostic aortogram and left lower extremity arteriogram Clinical Indication: Adult female with nonhealing wound of the left medial distal calf Sedation: Conscious sedation was administered with a total intraprocedural [id number] time of 86 minutes. The patient was monitored by a qualified independent observer throughout the time of sedation. Please refer to the medical record for exact doses of medications utilized to achieve moderate sedation. Antibiotics: None Exposure: Kerma-Area Product: 476 Gycm2 Contrast: 104 cc of Visipaque 320 contrast media Sterility: All elements of maximal sterile barrier technique including the use of a cap, mask, sterile gown, sterile gloves, large sterile sheet, appropriate hand hygiene, and 2% chlorhexidine for cutaneous antisepsis (or acceptable alternative antiseptic per current guidelines) were followed for this procedure. Consent: The procedure was explained in its entirety to the patient or the patients designated [employer] admissions representative by a member of the treatment team, including a discussion of the risks, benefits and commonly accepted alternatives to the procedure, as well as the expected consequences of no therapy whatsoever. Discussion of the risks included, but was not limited to, those that are most frequent and those that are rare but possibly severe or life-threatening, as well as the possibility of unforeseen complications. Technique and Findings: Following informed consent, the patient was prepped and draped in usual sterile fashion. Ultrasound interrogation of the right groin revealed patency of the right common femoral artery. A Hardcopy ultrasound image was recorded. As a 21-gauge micropuncture needle was used to gain access to this vessel. The needle was exchanged over wire for 5 Scottish sheath. A flush catheter was advanced into the abdominal aorta and contrast aortography is performed. The aorta and iliac arteries are patent. The catheter was then withdrawn to just above the aortic bifurcation and contrast angiography of the pelvis was performed in multiple obliquities. The iliofemoral arteries are patent. No hemodynamically significant stenoses. The catheter was then used to cross the aortic bifurcation and was advanced to the left common femoral artery and contrast angiography of the left leg was performed. The left SFA, popliteal, anterior tibial, tibioperoneal trunk, and peroneal arteries are widely patent. There is in-line flow to the dorsalis pedis artery from the anterior tibial artery, and in-line flow to the posterior tibial artery of the foot via the peroneal artery. 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 There is collateral artery which descends towards the ankle and provides widely patent symmetric flow to the cutaneous tissues of the medial left calf including hyperemic flow to the area of the wound. 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 The catheter was then removed and contrast angiography of the right groin was performed to assess for suitability of a closure device. A minx closure device was attempted but failed to achieve hemostasis. Hemostasis was subsequently achieved with manual compression. Complications: No immediate Impression: 1. Diagnostic aortogram and left lower extremity arteriography demonstrating no atherosclerosis in any distribution. There is a healthy two-vessel runoff to the foot via the anterior tibial and peroneal arteries. The posterior tibial artery is not identified and no vestigial components of it are evident. Furthermore there is a healthy accessory a collateral branch which perfuses the medial calf briskly, with abundant hyperemia about the area of wound. 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
[2020-06-26] MEDS ORDERED: ACETAMINOPHEN 500 MG TABLET PO ONE (15:00)
--- NOTE | 2020-06-26 17:34 | NUR ---
No bleeding R groin access site. Patient able to sit up, ambulate to bathroom. VS stable, on RA. Pain controlled. Patient d/c w/ spouse. Taken to [facility] via wheelchair. Education provided on site care, activity. Notified to hold pressure, call ambulance if site starts to bleed. Patient and verbalized understanding. Will followup w/ PCP. Addendum: 06/26/20 at 1750 by VIRGINIA ART RN Amended: Links added.
[2020-10-11] MEDS ORDERED: AMOX1TAB61 PO (10:26)
[2020-10-11] MEDS ORDERED: DOXY100T PO (10:26)
== END 2020-06-26 17:40 | disposition home or self-care (01) ==
LOC: INTRAD 08:24
PROVIDERS: ATTEND Emergency Medicine Undersea and Hyperbaric Medicine
DX: I73.9 Peripheral vascular disease, unspecified (principal); E11.40 Type 2 diabetes mellitus with diabetic neuropathy, unspecified; S81.802A Unspecified open wound, left lower leg, initial encounter; I10 Essential (primary) hypertension; M19.90 Unspecified osteoarthritis, unspecified site; E66.01 Morbid (severe) obesity due to excess calories; E78.00 Pure hypercholesterolemia, unspecified; K21.9 Gastro-esophageal reflux disease without esophagitis; G47.33 Obstructive sleep apnea (adult) (pediatric); Z98.890 Other specified postprocedural states; Z68.43 Body mass index [BMI] 50.0-59.9, adult; Z98.51 Tubal ligation status; Z91.040 Latex allergy status; Z88.8 Allergy status to other drugs, medicaments and biological substances; Z91.048 Other nonmedicinal substance allergy status; X58.XXXA Exposure to other specified factors, initial encounter; Y93.89 Activity, other specified; Y92.89 Other specified places as the place of occurrence of the external cause; Y99.8 Other external cause status; Z79.84 Long term (current) use of oral hypoglycemic drugs; Z79.899 Other long term (current) drug therapy
CPT/HCPCS: 36246; 36415; 75625; 75710; 76937; 80048; 85025; 85610; 85730; 99152; 99153; A4215; C1769; C1892; C1894; J1644; J2250; J3010; J3490; Q9967; 36247

== ENCOUNTER 2020-10-08 11:19 | Inpatient (IN) | payer BC, MEDICARE ==
[~2020-10-08] VITALS: Ht 162.6 cm; Wt 174.5 kg
[~2020-10-08 11:19] MED LIST changes: +CRESTOR5 MG PO; +METF500T16 PO; +PHEN15CA2 PO
[2020-10-08 11:45] VITALS: BP 156/76
[2020-10-08] MEDS ORDERED: VANCOMYCIN PER PHARMACY MC PRN (12:45)
--- NOTE | 2020-10-08 12:47 | PDOC1 ---
History and Physical Date of Admission Date of Admission DATE: 10/08/20 TIME: 12:45 History of Present Illness History of Present Illness i was called by wound care for non=healing LE wound that has now looked infected, and has now failed one week of outpatient antibiotics, she had taken Augmentin for 7 days, she has had severe pain and redness and weeping from her legs, left worse than right leg. severe pain to light touch, the pattern on the ron hurts her skin. she was prior admit here December 2019 for cellulitis of both legs and has been following w/ wound care she has stopped smoking 6 months ago, Past Medical History Past Medical History GABRIEL Cardiovascular: HTN Endocrine: Diabetes Family History Family History: High Cholestrol, Hypertension Social History ALCOHOL: none Drugs: None Current Medications Current Medications Current Medications Vancomycin HCl (Vanco Per Pharmacy) 1 each PRN DAILY PRN MC SEE COMMENTS; Start 10/08/20 at 12:45; Status UNV Active Scripts Active Reported Phentermine Hcl 15 Mg Capsule 1 Cap PO DAILY Crestor (Rosuvastatin Calcium) 5 Mg Tablet 2 Tab PO HS Diovan (Valsartan) 80 Mg Tablet 80 Mg PO DAILY Klor-Con M20 (Potassium Chloride) 20 Meq Tab.er.prt 1 Tab PO DAILY 30 Days Lasix (Furosemide) 40 Mg Tablet 1 Tab PO DAILY 30 Days Allergies Allergies: Coded Allergies: Latex, Natural Rubber (Verified Allergy, Intermediate, Rash, 05/29/15) ROS General: YES: Fatigue; No: Chills, Night Sweats, Malaise, Appetite, Other PSYCHOLOGICAL ROS: YES: Irritablity, Sleep disturbances; No: Anxiety, Behavioral Disorder, Concentration difficultie, Decreased libido, Depression, Disorientation, Hallucinations, Hostility, Memory difficult ies, Mood Swings, Obsessive thoughts, Physical abuse, Sexual abuse, Suicidal ideation, Other Eyes: No Blurry vision, No Decreased vision, No Double vision, No Dry eyes, No Excessive tearing, No Eye Pain, No Itchy Eyes, No Loss of vision, No Photophobia, No Scotomata, No Uses contacts, No Uses glasses, No Other HEENT: No: Heacaches, Visual Changes, Hearing change, Nasal congestion, Nasal discharge, Oral lesions, Sinus pain, Sore Throat, Epistaxis, Sneezing, Snoring, Tinnitus, Vertigo, Vocal changes, Other Respiratory: No: Cough, Hemoptysis, Orthopnea, Pleuritic Pain, Shortness of breath, SOB with excertion, Sputum Changes, Stridor, Tachypnea, Wheezing, Other Cardiovascular: No Chest Pain, No Palpitations, No Orthopnea, No Paroxysmal Noc. Dyspnea, No Edema, No Lt Headedness, No Other Gastrointestinal: No Nausea, No Vomiting, No Abdominal Pain, No Diarrhea, No Constipation, No Melena, No Hematochezia, No Other Genitourinary: No Dysuria, No Frequency, No Incontinence, No Hematuria, No Retention, No Discharge, No Urgency, No Pain, No Flank Pain, No Other, No , No , No , No , No , No , No Musculoskeletal: Yes Gait Disturbance, Yes Pain In: (skin); No Joint Pain, No Joint Stiffness, No Joint Swelling, No Muscle Pain, No Muscular Weakness, No Swelling In:, No Other Neurological: Yes Gait Disturbance; No Behavorial Changes, No Bowel/Bladder ControlChng, No Confusion, No Dizziness, No Headaches, No Impaired Coord/balance, No Memory Loss, No Numbness/Tingling, No Seizures, No Speech Problems, No Tremors, No Visual Changes, No Weakness, No Other Skin: Yes Dry Skin, Yes Eczema, Yes Mole Changes, Yes Rash, Yes Skin Lesion Changes, Yes Other; No Hair Changes, No Lumps, No Mottling, No Nail Changes, No Pruritus, No Acne Physical Exam General: Alert, moderate distress (pain 8/10) HEENT: PERRLA Lungs: Clear to auscultation Heart: S1S2, RRR, no thrills Abdomen: Normal bowel sounds, Soft Extremities: No clubbing, No edema Skin: No rashes, No significant lesion Neuro: Normal speech, Normal tone, Sensation intact Psych/Mental Status: Mood NL VTE Prophylaxis Ordered VTE Prophylaxis Devices: Yes VTE Pharmacological Prophylaxi: Yes Assessment/Plan Assessment/Plan LEFT LOWER LEG ULCER cellulitis and infection bilateral lower extremities morbid obesity, BMI 54 Dm2 htn tobacco use disorder Justifications for Admission Other Justification GREG SANDOVAL MD Oct 08, 2020 12:47
[2020-10-08] MEDS ORDERED: VANCOMYCIN 2 GM in IV NORMAL SALINE 500ML BAG 500 ML IV ONE (13:00)
[2020-10-08 13:11] LABS: BASO # 0.1 x10^3/uL (0.0-0.2); BASO % 1 % (0-3); EOS # 0.2 x10^3/uL (0.0-0.7); EOS % 2 % (0-3); HEMATOCRIT 40.6 % (36.0-47.0); HEMOGLOBIN 13.2 g/dL (12.0-15.5); LYMPH # 1.8 x10^3/uL (1.0-4.8); LYMPH % 19 % (24-48); MEAN CORPUSCULAR HEMOGLOBIN 27 pg (25-35); MEAN CORPUSCULAR HGB CONC 33 g/dL (31-37); MEAN CORPUSCULAR VOLUME 82 fL (79-100); MONO # 0.7 x10^3/uL (0.0-1.1); MONO % 8 % (0-9); NEUT # 6.7 x10^3/uL (1.8-7.7); NEUT % 71 % (31-73); PLATELET COUNT 295 x10^3/uL (140-400); RED BLOOD COUNT 4.95 x10^6/uL (3.50-5.40); RED CELL DISTRIBUTION WIDTH 15.8 % (11.5-14.5); WHITE BLOOD COUNT 9.4 x10^3/uL (4.0-11.0)
[2020-10-08 13:20] LABS: PROTHROMBIN TIME PATIENT 13.5 SEC (11.7-14.0)
[2020-10-08 13:22] LABS: ALBUMIN 2.9 g/dL (3.4-5.0); ALBUMIN/GLOBULIN RATIO 0.6 (1.0-1.7); CALCIUM 8.9 mg/dL (8.5-10.1); CREATININE 1.4 mg/dL (0.6-1.0); GFR 38.9; POTASSIUM 4.4 mmol/L (3.5-5.1); TOTAL BILIRUBIN 0.4 mg/dL (0.2-1.0); TOTAL PROTEIN 7.5 g/dL (6.4-8.2)
[2020-10-08] MEDS ORDERED: AMOX1TAB61 PO (13:52)
[2020-10-08] MEDS ORDERED: FURO40TA4 PO (13:52)
[2020-10-08] MEDS ORDERED: TRAM-48 PO (13:52)
[2020-10-08] MEDS ORDERED: METF500T16 PO (13:52)
[2020-10-08] MEDS ORDERED: fentaNYL PF VIAL 100 MCG/2 ML VIAL IVP PRN (14:15)
--- NOTE | 2020-10-08 14:22 | PDOC2 ---
Chief Complaint: Chief Complaint: Bilateral leg pain Problems: (1) Cellulitis of both lower extremities (2) CHRONIC VENOUS HYPERTENSION W ULCER OF L LOW EXTREM (3) CHRONIC VENOUS HYPERTENSION W ULCER OF R LOW EXTREM (4) LYMPHEDEMA, NOT ELSEWHERE CLASSIFIED (5) OTHER OBESITY Vital Signs: Vital Signs: Vital Signs Date Time Temp Pulse Resp B/P (MAP) Pulse Ox O2 Delivery O2 Flow Rate FiO2 10/08/20 11:45 97.3 95 18 156/76 (102) 96 97.3 Vital Signs Date Time Temp Pulse Resp B/P (MAP) Pulse Ox O2 Delivery O2 Flow Rate FiO2 10/08/20 11:45 97.3 95 18 156/76 (102) 96 97.3 Allergies: Allergies: Allergies Coded Allergies Type Severity Reaction Last Updated Verified Latex, Natural Rubber Allergy Intermediate Rash 05/29/15 Yes Medications: Home Meds Reported Medications Amoxicillin/Potassium Clav (AUGMENTIN 875-125 TABLET) 1 Each Tablet, 1 TAB PO BID for cellulitis for 10 Days, #20 TAB 0 Refills 10/08/20 Tramadol Hcl (ULTRAM) 50 Mg Tablet, 1 TAB PO PRN Q12HR PRN for pain MDD 2 Tablet(s) for 30 Days, #60 TAB 0 Refills 10/08/20 Metformin Hcl (METFORMIN HCL) 500 Mg Tablet, 500 MG PO DAILY for ANTI-DIABETIC, TAB 0 Refills 10/08/20 Furosemide (FUROSEMIDE) 40 Mg Tablet, 40 MG PO BID for CHF, TAB 10/08/20 Phentermine Hcl (PHENTERMINE HCL) 15 Mg Capsule, 1 CAP PO DAILY for weight loss, #30 CAP 06/26/20 Rosuvastatin Calcium (CRESTOR) 5 Mg Tablet, 2 TAB PO HS for prescribed, #30 TAB 5 Refills 06/26/20 Valsartan (DIOVAN) 80 Mg Tablet, 80 MG PO DAILY for HTN, TAB 12/30/19 Potassium Chloride (KLOR-CON M20) 20 Meq Tab.er.prt, 1 TAB PO DAILY for supplement, taking lasix for 30 Days, #30 TAB 0 Refills 12/30/19 PCP: PCP: Lucia Leblanc MD Pain: Pain Location: Leg Pain Description: Burning (Bilateral below the knees) Pain Context: Worsening Date of Onset Ms. Jimenez is a 55-year-old female whom we have been following in the wound care clinic for bilateral lower extremity venous leg ulcers. She has contributing comorbidities of edema, lymphedema, and severe obesity. She has had several rounds of antibiotics for cellulitis. Most recently she just finished a round of Augmentin 875 mg p.o. twice daily for 7 days. We have been unable to compress her legs due to the severe copious drainage which requires changing of absorbent dressings every 2 hours. She is unable to elevate her legs because she states that when she lays down to elevate her legs her belly pushes up into her chest and she is unable to breathe. She presented to wound clinic today with increasing pain as well as bright red swollen weeping legs. Surgical Date NA PMH Type II DM, morbid obesity, sleep apnea, HTN, lymphedema Surgical History Tubal ligation, hernia repair, sinus surgery PSH Former smoker, and lives alone but maintains relationship with her spouse. Her children have removed from her home by civil authorities Physical Exam - Wound #1 Wound Exam Location of Modifier: Left Wound Location: Lower Body Site: Leg Associated Signs/Symptoms: Hot, Pain, Erythema Drainage Amount: Copious Drainage Description: Serous Odor: Mild Odor Surrounding Tissue Appearance: indurated Physical Exam - Wound #2 Wound Exam Location of Modifier: Right Wound Location: Lower Body Site: Leg Associated Signs/Symptoms: Swelling, Hot, Pain, Drainage Drainage Amount: Copious Drainage Description: Serous Odor: Mild Odor A/P BLE increasing pain with hot, painful bright red wounds and periwound erythema and induration c/w cellulitis, failed tx with Augmentin 875 mg q 12 hr x 7 d. She would benefit from admission for IV antibx as well as compression in a controlled environment to evaluate effectivenss of recommended tx when she is in a supervised environment. Problems: (1) Cellulitis of both lower extremities (2) CHRONIC VENOUS HYPERTENSION W ULCER OF R LOW EXTREM (3) CHRONIC VENOUS HYPERTENSION W ULCER OF L LOW EXTREM (4) LYMPHEDEMA, NOT ELSEWHERE CLASSIFIED (5) OTHER OBESITY LORRAINE ELIAS MD Oct 08, 2020 14:22
[2020-10-08 14:28] VITALS: BP 135/67
[2020-10-08] MEDS: POTASSIUM CHLORIDE 20 MEQ TABLET.ER. PO SCH (14:55)
[2020-10-08] MEDS: ZINC SULFATE 220 MG CAPSULE. PO SCH (14:56)
[2020-10-08] MEDS: FUROSEMIDE 40 MG TABLET. PO SCH (14:56)
[2020-10-08] MEDS: metFORMIN 500 MG TABLET PO SCH (14:57)
[2020-10-08] MEDS: ASCORBIC ACID 500 MG TABLET PO SCH (14:58)
[2020-10-08] MEDS: oxyCODONE/APAP 5/325 1 TAB TABLET PO PRN ×2 (14:58→19:48)
[2020-10-08 19:00] VITALS: BP 156/82
[2020-10-08] MEDS: ATORVASTATIN CALCIUM 40 MG TABLET. PO SCH (21:18)
[2020-10-08] MEDS: traMADol 50 MG TABLET PO PRN (21:18)
[2020-10-08 23:00] VITALS: BP 128/63
[2020-10-09] MEDS: oxyCODONE/APAP 5/325 1 TAB TABLET PO PRN ×4 (00:01→23:17)
[2020-10-09 03:00] VITALS: BP 142/66
[2020-10-09] MEDS ORDERED: VANCOMYCIN 1.5 GM in IV NORMAL SALINE 500ML BAG 500 ML IV SCH (03:00)
[2020-10-09 07:11] VITALS: BP 137/55
[2020-10-09] MEDS: traMADol 50 MG TABLET PO PRN ×2 (08:32→23:17)
[2020-10-09] MEDS: LOSARTAN POTASSIUM 50 MG TABLET. PO SCH (08:33)
[2020-10-09] MEDS: metFORMIN 500 MG TABLET PO SCH (08:33)
[2020-10-09] MEDS: ASCORBIC ACID 500 MG TABLET PO SCH (08:34)
[2020-10-09] MEDS: FUROSEMIDE 40 MG TABLET. PO SCH ×2 (08:34→15:28)
[2020-10-09] MEDS: ZINC SULFATE 220 MG CAPSULE. PO SCH (08:34)
[2020-10-09] MEDS: POTASSIUM CHLORIDE 20 MEQ TABLET.ER. PO SCH (08:34)
--- NOTE | 2020-10-09 08:51 | PDOC ---
Infectious Disease Note Vital Sign Vital Signs Vital Signs Date Time Temp Pulse Resp B/P (MAP) Pulse Ox O2 Delivery O2 Flow Rate FiO2 10/09/20 08:33 90 137/55 10/09/20 08:32 Room Air 10/09/20 07:11 98.4 18 93 98.4 Labs Lab Laboratory Tests Test 10/08/20 13:00 White Blood Count 9.4 x10^3/uL (4.0-11.0) Red Blood Count 4.95 x10^6/uL (3.50-5.40) Hemoglobin 13.2 g/dL (12.0-15.5) Hematocrit 40.6 % (36.0-47.0) Mean Corpuscular Volume 82 fL (79-100) Mean Corpuscular Hemoglobin 27 pg (25-35) Mean Corpuscular Hemoglobin Concent 33 g/dL (31-37) Red Cell Distribution Width 15.8 % (11.5-14.5) Platelet Count 295 x10^3/uL (140-400) Neutrophils (%) (Auto) 71 % (31-73) Lymphocytes (%) (Auto) 19 % (24-48) Monocytes (%) (Auto) 8 % (0-9) Eosinophils (%) (Auto) 2 % (0-3) Basophils (%) (Auto) 1 % (0-3) Neutrophils # (Auto) 6.7 x10^3/uL (1.8-7.7) Lymphocytes # (Auto) 1.8 x10^3/uL (1.0-4.8) Monocytes # (Auto) 0.7 x10^3/uL (0.0-1.1) Eosinophils # (Auto) 0.2 x10^3/uL (0.0-0.7) Basophils # (Auto) 0.1 x10^3/uL (0.0-0.2) Prothrombin Time 13.5 SEC (11.7-14.0) Prothromb Time International Ratio 1.1 (0.8-1.1) Sodium Level 137 mmol/L (136-145) Potassium Level 4.4 mmol/L (3.5-5.1) Chloride Level 104 mmol/L (98-107) Carbon Dioxide Level 22 mmol/L (21-32) Anion Gap 11 (6-14) Blood Urea Nitrogen 34 mg/dL (7-20) Creatinine 1.4 mg/dL (0.6-1.0) Estimated GFR (Cockcroft-Gault) 38.9 BUN/Creatinine Ratio 24 (6-20) Glucose Level 189 mg/dL (70-99) Calcium Level 8.9 mg/dL (8.5-10.1) Total Bilirubin 0.4 mg/dL (0.2-1.0) Aspartate Amino Transf (AST/SGOT) 28 U/L (15-37) Alanine Aminotransferase (ALT/SGPT) 38 U/L (14-59) Alkaline Phosphatase 86 U/L (46-116) Total Protein 7.5 g/dL (6.4-8.2) Albumin 2.9 g/dL (3.4-5.0) Albumin/Globulin Ratio 0.6 (1.0-1.7) Objective Assessment pt seen, consult dictated Plan Plan of Care / MIGUEL ÁNGEL JOSE MD Oct 09, 2020 08:51
[2020-10-09] MEDS ORDERED: NON FORMULARY ITEM (Phentermine Hcl 1 CAP) PO SCH (09:00)
[2020-10-09 10:39] VITALS: BP 115/73
[2020-10-09] MEDS: PIPERACILLIN/TAZOBACTAM 3.375 GM in IV NORMAL SALINE 50ML 50 ML IV SCH ×3 (11:38→23:18)
--- NOTE | 2020-10-09 13:33 | PDOC ---
[employer] PROGRESS NOTE Date of Service DOS: DATE: 10/09/20 TIME: 13:31 Chief Complaint Chief Complaint LEFT LOWER LEG ULCER cellulitis and infection bilateral lower extremities venous stasis, acute on chronic morbid obesity, BMI 66 Dm2 htn History of Present Illness History of Present Illness pain much better, up with exertion, cont current Vitals/I&O Vitals/I&O: Vital Signs Date Time Temp Pulse Resp B/P (MAP) Pulse Ox O2 Delivery O2 Flow Rate FiO2 10/09/20 10:39 98.3 90 18 115/73 (87) 92 Room Air 98.3 I & O 10/08/20 10/08/20 10/09/20 15:00 23:00 07:00 Intake Total 200 ml 900 ml Balance 200 ml 900 ml Physical Exam General: Alert, Cooperative, moderate distress (pain 8/10) Heart: Normal S1 Lungs: Clear, Wheezing, Other Abdomen: Normal bowel sounds, Soft Extremities: No clubbing, No edema Skin: No rashes, No significant lesion Comment Review of Relevant I have reviewed the following items jyotsna (where applicable) has been applied. Medications: Current Medications Medications (Trade) Dose Ordered Sig/Dony Route PRN Reason Start Time Stop Time Status Last Admin Dose Admin Furosemide (Lasix) 40 mg [id number] PO 10/08/20 14:00 10/09/20 08:34 Metformin HCl (Glucophage) 500 mg DAILY PO 10/08/20 14:00 10/09/20 08:33 Potassium Chloride (Klor-Con) 20 meq DAILY PO 10/08/20 14:00 10/09/20 08:34 Tramadol HCl (Ultram) 50 mg PRN Q12HR PRN PO MILD PAIN 1-3 10/08/20 14:15 10/09/20 08:32 Atorvastatin Calcium (Lipitor) 40 mg QHS PO 10/08/20 21:00 10/08/20 21:18 Losartan Potassium (Cozaar) 50 mg DAILY PO 10/09/20 09:00 10/09/20 08:33 Zinc Sulfate (Orazinc) 220 mg DAILY PO 10/08/20 14:15 10/09/20 08:34 Ascorbic Acid (Vitamin C) 500 mg DAILY PO 10/08/20 14:15 10/09/20 08:34 Oxycodone/ Acetaminophen (Percocet 5/325) 1 tab PRN Q4HRS PRN PO MODERATE TO SEVERE PAIN 10/08/20 14:15 10/09/20 05:28 Fentanyl Citrate (Fentanyl 2ml Vial) 50 mcg PRN Q2HR PRN IVP MODERATE TO SEVERE PAIN 10/08/20 14:15 10/08/20 17:39 Enoxaparin Sodium (Lovenox 60mg Syringe) 60 mg Q12HR SQ 10/08/20 14:00 10/09/20 08:38 Vancomycin HCl 1.5 gm/Sodium Chloride 500 ml @ 250 mls/hr Q12H IV 10/09/20 03:00 10/09/20 08:51 DC 10/09/20 03:53 Piperacillin Sod/ Tazobactam Sod 3.375 gm/Sodium Chloride 50 ml @ 100 mls/hr Q6HRS IV 10/09/20 10:00 10/09/20 11:38 Justifications for Admission Other Justification GREG SANDOVAL MD Oct 09, 2020 13:33
[2020-10-09 14:28] VITALS: BP 99/54
[2020-10-09 19:20] VITALS: BP 129/64
--- NOTE | 2020-10-09 19:24 | CONS ---
DATE OF CONSULTATION: 10/09/2020 REQUESTING PHYSICIAN: Dr. Elif Atkinson. REASON FOR CONSULTATION: Leg cellulitis. HISTORY OF PRESENT ILLNESS: This is a 55-year-old female with morbid obesity, who was admitted for bilateral lower extremity cellulitis. Apparently, this has been going on for almost a year. The patient has had a lot of leakage from the legs as she is sitting and leaking from the leg superficial wounds. The patient has redness. The patient states if she puts more dressing on she has more redness. If she does not put dressing on, there is less redness. Denies any fever. Denies any nausea, vomiting or diarrhea. Denies any chest pain, shortness of breath, abdominal pain, urinary symptoms or bowel symptoms. PAST MEDICAL HISTORY: Positive for hypertension, diabetes, obstructive sleep apnea and super morbid obesity. SOCIAL HISTORY: Negative for smoking, alcohol or illicit drug use. CURRENT MEDICATIONS: The patient is on vancomycin. REVIEW OF SYSTEMS: As per HPI, all other systems reviewed and are negative. PHYSICAL EXAMINATION: GENERAL: Alert, oriented female, not in distress. VITAL SIGNS: Stable, afebrile. HEENT: NAD. NECK: Supple, no JVP, no lymphadenopathy. LUNGS: Clear. HEART: S1, S2 regular. ABDOMEN: Benign. EXTREMITIES: Bilateral lower extremity stasis dermatitis present, chronic venous insufficiency, edema present as well as crusted skin flaking with superficial ulceration and leakage present, secondary infection is possible, most likely all this is a mechanical issue. LABORATORY DATA: White count is normal. BUN and creatinine are 34 and 1.4. The patient had angiogram done in last June, which showed no atherosclerosis in any distribution. Posterior tibial was not identified. 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 IMPRESSION: Bilateral lower extremity skin changes mostly related to chronic stasis dermatitis and venous insufficiency. The patient does not have any arterial insufficiency and mostly this is secondary to mechanical issue of super morbid obesity, secondary infection of the open superficial ulcers is possible. RECOMMENDATIONS: Recommend discontinue vancomycin, change to Zosyn IV. Leg elevation as much as possible, which is unfortunately she is not able to do because of obesity. The patient was also recommended to lose weight, which she says she is working on it. Zosyn can be switched over to the oral for possible discharge. Thank you very much, Dr. Atkinson, for giving me the opportunity to participate in this patient's care. MIGUEL ÁNGEL JOSE MD DR: FELY/bethany JOB#: [id number] / [id number]
[2020-10-09] MEDS: ATORVASTATIN CALCIUM 40 MG TABLET. PO SCH (20:02)
[2020-10-09] MEDS: LACTOBACILLUS RHAMNOSUS GG 1 CAPSULE. PO SCH (20:02)
[2020-10-09 23:28] VITALS: BP 123/63
[2020-10-10 03:50] VITALS: BP 110/60
[2020-10-10] MEDS: PIPERACILLIN/TAZOBACTAM 3.375 GM in IV NORMAL SALINE 50ML 50 ML IV SCH ×3 (06:13→18:20)
[2020-10-10] MEDS: oxyCODONE/APAP 5/325 1 TAB TABLET PO PRN ×4 (06:13→22:59)
[2020-10-10 07:00] VITALS: BP 95/61
[2020-10-10] MEDS: ZINC SULFATE 220 MG CAPSULE. PO SCH (08:57)
[2020-10-10] MEDS: LACTOBACILLUS RHAMNOSUS GG 1 CAPSULE. PO SCH ×2 (08:58→20:47)
[2020-10-10] MEDS: metFORMIN 500 MG TABLET PO SCH (08:58)
[2020-10-10] MEDS: ASCORBIC ACID 500 MG TABLET PO SCH (08:58)
[2020-10-10] MEDS: POTASSIUM CHLORIDE 20 MEQ TABLET.ER. PO SCH (08:58)
[2020-10-10] MEDS: LOSARTAN POTASSIUM 50 MG TABLET. PO SCH (09:00)
[2020-10-10] MEDS: FUROSEMIDE 40 MG TABLET. PO SCH ×2 (09:00→13:34)
--- NOTE | 2020-10-10 09:07 | PDOC ---
Infectious Disease Note Subjective Subjective pt is feeling better, says legs are looking better ROS ROS no n/v/d/fever Vital Sign Vital Signs Vital Signs Date Time Temp Pulse Resp B/P (MAP) Pulse Ox O2 Delivery O2 Flow Rate FiO2 10/10/20 08:55 Room Air 10/10/20 07:00 97.9 91 16 95/61 (72) 92 97.9 Physical Exam PHYSICAL EXAM GENERAL: Alert, oriented female, not in distress. VITAL SIGNS: Stable, afebrile. HEENT: NAD. NECK: Supple, no JVP, no lymphadenopathy. LUNGS: Clear. HEART: S1, S2 regular. ABDOMEN: Benign. EXTREMITIES: Bilateral lower extremity stasis dermatitis present, chronic venous insufficiency, edema present as well as crusted skin flaking with superficial ulceration and leakage present, secondary infection is possible, most likely all this is a mechanical issue. Objective Assessment Bilateral lower extremity skin changes mostly related to chronic stasis dermatitis and venous insufficiency. The patient does not have any arterial insufficiency and mostly this is secondary to mechanical issue of super morbid obesity, secondary infection of the open superficial ulcers is possible. Plan Plan of Care need wt loss need leg elevation as much as possible when not walking need to walk more change zosyn to po augmentin and doxy for d/c MIGUEL ÁNGEL Washington MD Oct 10, 2020 09:07
[2020-10-10 11:00] VITALS: BP 137/73
--- NOTE | 2020-10-10 11:43 | PDOC ---
[employer] PROGRESS NOTE Date of Service DOS: DATE: 10/10/20 TIME: 11:42 Chief Complaint Chief Complaint LEFT LOWER LEG ULCER cellulitis and infection bilateral lower extremities venous stasis, acute on chronic morbid obesity, BMI 66 Dm2 htn History of Present Illness History of Present Illness still having [pain and is poorly ambulatory having trouble getting to the bathroom cont pt and OT skin looks better, able to change abx to PO at DC, plan DC soon, in AM pain much better, up with exertion, cont current Vitals/I&O Vitals/I&O: Vital Signs Date Time Temp Pulse Resp B/P (MAP) Pulse Ox O2 Delivery O2 Flow Rate FiO2 10/10/20 11:00 97.7 88 16 137/73 (94) 94 Room Air 97.7 I & O 10/09/20 10/09/20 10/10/20 15:00 23:00 07:00 Intake Total 540 ml Balance 540 ml Physical Exam Physical Exam: GENERAL: Alert, oriented female, not in distress. VITAL SIGNS: Stable, afebrile. HEENT: NAD. NECK: Supple, no JVP, no lymphadenopathy. LUNGS: Clear. HEART: S1, S2 regular. ABDOMEN: Benign. EXTREMITIES: Bilateral lower extremity stasis dermatitis present, chronic venous insufficiency, edema present as well as crusted skin flaking with superficial ulceration and leakage present, secondary infection is possible, most likely all this is a mechanical issue. General: Alert, Cooperative, moderate distress (pain 8/10) Heart: Normal S1 Lungs: Clear, Wheezing, Other Abdomen: Normal bowel sounds, Soft Extremities: No clubbing, No edema Skin: No rashes, No significant lesion Comment Review of Relevant I have reviewed the following items jyotsna (where applicable) has been applied. Medications: Current Medications Medications (Trade) Dose Ordered Sig/Dony Route PRN Reason Start Time Stop Time Status Last Admin Dose Admin Lactobacillus Rhamnosus (Culturelle) 1 cap BID PO 10/09/20 21:00 10/10/20 08:58 Justifications for Admission Other Justification GREG SANDOVAL MD Oct 10, 2020 11:43
[2020-10-10 15:00] VITALS: BP 127/61
[2020-10-10 19:00] VITALS: BP 126/68
[2020-10-10] MEDS: ATORVASTATIN CALCIUM 40 MG TABLET. PO SCH (20:47)
[2020-10-10 23:00] VITALS: BP 153/83
[2020-10-11] MEDS: PIPERACILLIN/TAZOBACTAM 3.375 GM in IV NORMAL SALINE 50ML 50 ML IV SCH ×2 (00:22→06:29)
[2020-10-11 03:00] VITALS: BP 125/65
[2020-10-11] MEDS: oxyCODONE/APAP 5/325 1 TAB TABLET PO PRN ×2 (05:15→11:12)
[2020-10-11 07:00] VITALS: BP 141/65
[2020-10-11] MEDS: metFORMIN 500 MG TABLET PO SCH (08:46)
[2020-10-11] MEDS: LACTOBACILLUS RHAMNOSUS GG 1 CAPSULE. PO SCH (08:46)
[2020-10-11] MEDS: ZINC SULFATE 220 MG CAPSULE. PO SCH (08:46)
[2020-10-11] MEDS: LOSARTAN POTASSIUM 50 MG TABLET. PO SCH (08:46)
[2020-10-11] MEDS: POTASSIUM CHLORIDE 20 MEQ TABLET.ER. PO SCH (08:47)
[2020-10-11] MEDS: ASCORBIC ACID 500 MG TABLET PO SCH (08:47)
[2020-10-11] MEDS: FUROSEMIDE 40 MG TABLET. PO SCH (08:47)
[2020-10-11] MEDS ORDERED: DOXY100T PO (10:26)
[2020-10-11] MEDS ORDERED: AMOX1TAB61 PO (10:26)
--- NOTE | 2020-10-11 10:28 | PDOC3 ---
Discharge Summary Visit Information Date of Admission: Oct 08, 2020 Date of Discharge: Oct 11, 2020 Final Diagnosis sepsis was POA, LEFT LOWER LEG ULCER cellulitis and infection bilateral lower extremities venous stasis, acute on chronic morbid obesity, BMI 66 Dm2 htn Brief Hospital Course Allergies Allergies Coded Allergies Type Severity Reaction Last Updated Verified Latex, Natural Rubber Allergy Intermediate Rash 05/29/15 Yes Vital Signs Vital Signs Date Time Temp Pulse Resp B/P (MAP) Pulse Ox O2 Delivery O2 Flow Rate FiO2 10/11/20 08:46 102 141/65 10/11/20 07:00 98.1 16 91 Room Air 98.1 Brief Hospital Course Ms. Jimenez is a 55 old female, morbid obese, admit with cellulitis legs, pain and weeping skin failure of outpatient abx for 7 days with pain admit vanc, then zosyn, unloading, wound care DC home Discharge Information Condition at Discharge: Improved Follow Up: Weeks Disposition/Orders: D/C to Home Scheduled Amoxicillin/Potassium Clav (Augmentin 875-125 Tablet) 1 Each Tablet, 1 TAB PO BID for cellulitis for 7 Days, #14 Ref 0 Prescribed by: GREG SANDOVAL on 10/11/20 1026 Doxycycline Hyclate (Doxycycline Hyclate) 100 Mg Tablet, 1 TAB PO BID for cellulitis, #14 Prescribed by: GREG SANDOVAL on 10/11/20 1026 Furosemide (Furosemide) 40 Mg Tablet, 40 MG PO BID for CHF, (Reported) Entered as Reported by: MEDHAT DEAN on 10/08/20 1352 Last Action: Continued on 10/08/201401 by GREG SANDOVAL Metformin Hcl (Metformin Hcl) 500 Mg Tablet, 500 MG PO DAILY for ANTI-DIABETIC, Ref 0 (Reported) Entered as Reported by: MEDHAT DEAN on 10/08/20 135 Last Action: Continued on 10/08/201401 by GREG SANDOVAL Phentermine Hcl (Phentermine Hcl) 15 Mg Capsule, 1 CAP PO DAILY for weight loss, #30 (Reported) Entered as Reported by: Stephanie Encarnacion on 06/26/20 0913 Last Action: Converted on 10/08/201401 by GREG SANDOVAL Potassium Chloride (Klor-Con M20) 20 Meq Tab.er.prt, 1 TAB PO DAILY for supplement, taking lasix for 30 Days, #30 Ref 0 (Reported) Entered as Reported by: TERE DALE on 12/30/19511 Last Action: Continued on 10/08/201401 by GREG SANDOVAL Rosuvastatin Calcium (Crestor) 5 Mg Tablet, 2 TAB PO HS for prescribed, #30 Ref 5 (Reported) Entered as Reported by: Stephanie Encarnacion on 06/26/20912 Last Action: Converted on 10/08/201401 by GREG SANDOVAL Valsartan (Diovan) 80 Mg Tablet, 80 MG PO DAILY for HTN, (Reported) Entered as Reported by: TERE DALE on 12/30/19511 Last Action: Converted on 10/08/201401 by GREG SANDOVAL Scheduled PRN Tramadol Hcl (Ultram) 50 Mg Tablet, 1 TAB PO PRN Q12HR PRN for pain MDD 2 Tablet(s) for 30 Days, #60 Ref 0 (Reported) Entered as Reported by: MEDHAT DEAN on 10/08/20 1352 Last Action: Continued on 10/08/201401 by GREG SANDOVAL Patient Instructions Patient Instructions face to face discussed withy pt and f/u wound care clinic Justicifation of Admission Dx: Justifications for Admission: Justification of Admission Dx: Yes Sepsis: Infection Cellulitis: Cellulitis GREG SANDOVAL MD Oct 11, 2020 10:28
--- NOTE | 2020-10-11 10:42 | PDOC ---
Infectious Disease Note Subjective Subjective pt is feeling better, says legs are looking better ROS ROS no n/v/d/ Vital Sign Vital Signs Vital Signs Date Time Temp Pulse Resp B/P (MAP) Pulse Ox O2 Delivery O2 Flow Rate FiO2 10/11/20 08:46 102 141/65 10/11/20 07:00 98.1 16 91 Room Air 98.1 Physical Exam PHYSICAL EXAM GENERAL: Alert, oriented female, not in distress. VITAL SIGNS: Stable, afebrile. HEENT: NAD. NECK: Supple, no JVP, no lymphadenopathy. LUNGS: Clear. HEART: S1, S2 regular. ABDOMEN: Benign. EXTREMITIES: Bilateral lower extremity stasis dermatitis present, chronic venous insufficiency, edema present as well as crusted skin flaking with superficial ulceration and leakage present, secondary infection is possible, most likely all this is a mechanical issue. Objective Assessment Bilateral lower extremity skin changes mostly related to chronic stasis dermatitis and venous insufficiency. The patient does not have any arterial insufficiency and mostly this is secondary to mechanical issue of super morbid obesity, secondary infection of the open superficial ulcers is possible. Plan Plan of Care need wt loss need leg elevation as much as possible when not walking need to walk more po augmentin and doxy for d/c MIGUEL ÁNGEL Washington MD Oct 11, 2020 10:42
[2020-10-11 11:00] VITALS: BP 138/68
== END 2020-10-11 11:30 | disposition home or self-care (01) | DRG 872 ==
LOC: 4 NORTH 11:19
PROVIDERS: ADMIT Internal Medicine; ATTEND Internal Medicine
DX: A41.9 Sepsis, unspecified organism (principal); L03.115 Cellulitis of right lower limb; Z68.44 Body mass index [BMI] 60.0-69.9, adult; L03.116 Cellulitis of left lower limb; L97.929 Non-pressure chronic ulcer of unspecified part of left lower leg with unspecified severity; I10 Essential (primary) hypertension; E11.9 Type 2 diabetes mellitus without complications; E11.621 Type 2 diabetes mellitus with foot ulcer; E66.01 Morbid (severe) obesity due to excess calories; I87.2 Venous insufficiency (chronic) (peripheral); I87.8 Other specified disorders of veins; I89.0 Lymphedema, not elsewhere classified; Z72.0 Tobacco use; Z91.040 Latex allergy status; Z91.048 Other nonmedicinal substance allergy status; Z82.49 Family history of ischemic heart disease and other diseases of the circulatory system
CPT/HCPCS: 36415; 80053; 85025; 85610; J1650; J2543; J3010; J3370; J7040; G0378